=== PATIENT | female | born 1940 ===

== ENCOUNTER 2021-08-22 17:03 | Inpatient (IN) | payer OTHER ==
[2021-08-22 17:49] LABS: BASO % 0.9 % (0-2.0); EOS % 0.3 % (0-4.5); HEMOGLOBIN 8.6 GM/dL (10.7-15.3); LYMPH % 5.9 % (8-40); MCH 31.2 pg (25.7-33.7); MCHC 33.2 g/dl (32.0-36.0); MEAN CELL VOLUME 93.9 fl (80-96); MEAN PLT VOLUME 7.2 fl (7.5-11.1); MONO % 7.9 % (3.8-10.2); PLATELET COUNT 581 10^3/uL (134-434); RBC 2.77 M/mm3 (3.60-5.2); RDW 17.7 % (11.6-15.6)
[2021-08-22 18:06] LABS: ACTIVATED PTT 25.5 SECONDS (25.2-36.5); INR 1.01 (0.83-1.09); PROTHROMBIN TIME (PATIENT) 11.6 SEC (9.7-13.0)
[2021-08-22 18:17] LABS: ALBUMIN 2.6 g/dl (3.4-5.0); BLOOD UREA NITROGEN 18.7 mg/dL (7-18); CALCIUM 8.7 mg/dL (8.5-10.1)
[2021-08-22 18:19] LABS: CREATININE 1.2 mg/dL (0.55-1.3)
[2021-08-22 18:22] LABS: BILIRUBIN,TOTAL 0.5 mg/dL (0.2-1); TOT PROT 5.7 g/dl (6.4-8.2)
[2021-08-22 18:23] LABS: LACTIC ACID 2.1 mmol/L (0.4-2.0)
[2021-08-22 18:25] LABS: N-TERMINAL BNP 766.2 pg/ml (5-450)
[2021-08-23] MEDS ORDERED: CALCIUM GLUCONATE 10% - 1,000 MG/10 ML VIAL IVPUSH ONE (00:03)
[2021-08-23] MEDS ORDERED: INSULIN REGULAR HUMAN 100 UNITS/ML *VIAL SQ ONE (00:03)
[2021-08-23] MEDS ORDERED: SODIUM ZIRCONIUM CYCLOSILICATE (LOKELMA) 5 GM PACKET PO SCH (00:04)
[2021-08-23] MEDS ORDERED: DEXTROSE 50%-WATER - 25 GM/50 ML VIAL IVPUSH ONE (00:04)
[2021-08-23 03:56] VITALS: BMI 21.4
[2021-08-23 08:44] LABS: HEMATOCRIT 21.9 % (32.4-45.2); HEMOGLOBIN 7.3 GM/dL (10.7-15.3); MCH 31.2 pg (25.7-33.7); MCHC 33.1 g/dl (32.0-36.0); MEAN CELL VOLUME 94.3 fl (80-96); MEAN PLT VOLUME 7.4 fl (7.5-11.1); PLATELET COUNT 504 10^3/uL (134-434); RBC 2.33 M/mm3 (3.60-5.2); RDW 17.5 % (11.6-15.6); WHITE BLOOD COUNT 7.9 K/mm3 (4.0-10.0)
[2021-08-23 08:46] LABS: ALBUMIN 2.2 g/dl (3.4-5.0); BLOOD UREA NITROGEN 19.7 mg/dL (7-18); CALCIUM 8.5 mg/dL (8.5-10.1); MAGNESIUM 2.3 mg/dL (1.8-2.4)
[2021-08-23 08:48] LABS: CREATININE 1.1 mg/dL (0.55-1.3); PHOSPHOROUS 4.2 mg/dL (2.5-4.9)
[2021-08-23 08:51] LABS: BILIRUBIN,TOTAL 0.8 mg/dL (0.2-1)
[2021-08-23] MEDS: ENOXAPARIN NA (PORCINE) 40 MG/0.4 ML DISP.SYRIN SQ SCH (10:22)
[2021-08-23] MEDS ORDERED: LIDOCAINE HCL 1%, 10 MG/ML (20ML VIAL) ONE (16:25)
[2021-08-23 18:44] LABS: BF WBC & OTHER NUCLEATED CELLS 509 /mm3
[2021-08-23] MEDS: ALBUMIN HUMAN 25% 12.5 GM/50 ML VIAL IV SCH ×2 (18:51→20:23)
[2021-08-23 19:58] LABS: BODY FLUID MESOTHELIAL 29 %; BODY FLUID MONOCYTE 2 %
[2021-08-23 19:59] LABS: BODY FLUID MACROPHAGES 22 %
[2021-08-23] MEDS ORDERED: BENZOCAINE/MENTH/CETYLPYRD CL 1 EACH LOZENGE MM PRN (21:38)
[2021-08-23] MEDS ORDERED: ACETAMINOPHEN 325 MG TABLET (FP) PO ONE (21:38)
[2021-08-24 02:08] LABS: ARTERIAL BLD GAS O2 SATURATION 97.5 % (95-98); ARTERIAL BLOOD GAS BASE EXCESS -6.4 mmol/L (-2-2); ARTERIAL BLOOD GAS PO2 98.8 mmHg (80-100); ARTERIAL BLOOD GAS pH 7.377 (7.350-7.450)
[2021-08-24 02:10] LABS: ALLENS TEST POSITIVE
[2021-08-24] MEDS: ENOXAPARIN NA (PORCINE) 40 MG/0.4 ML DISP.SYRIN SQ SCH (10:16)
[2021-08-24 10:33] LABS: HEMATOCRIT 21.7 % (32.4-45.2); HEMOGLOBIN 7.3 GM/dL (10.7-15.3); MCH 31.3 pg (25.7-33.7); MCHC 33.4 g/dl (32.0-36.0); MEAN CELL VOLUME 93.5 fl (80-96); MEAN PLT VOLUME 7.3 fl (7.5-11.1); PLATELET COUNT 456 10^3/uL (134-434); RBC 2.32 M/mm3 (3.60-5.2); RDW 17.5 % (11.6-15.6); WHITE BLOOD COUNT 8.6 K/mm3 (4.0-10.0)
[2021-08-24] MEDS: oxyCODONE HCL 5 MG TABLET PO PRN (10:38)
[2021-08-24 10:53] LABS: ALBUMIN 2.2 g/dl (3.4-5.0); BLOOD UREA NITROGEN 27.8 mg/dL (7-18); CALCIUM 8.1 mg/dL (8.5-10.1); MAGNESIUM 2.2 mg/dL (1.8-2.4)
[2021-08-24 10:57] LABS: CREATININE 1.3 mg/dL (0.55-1.3); PHOSPHOROUS 4.6 mg/dL (2.5-4.9)
[2021-08-24 10:58] LABS: BILIRUBIN,TOTAL 0.7 mg/dL (0.2-1); TOT PROT 4.5 g/dl (6.4-8.2)
[2021-08-24 22:39] LABS: BF WBC & OTHER NUCLEATED CELLS 920 /mm3
[2021-08-25 00:14] LABS: BODY FLUID MACROPHAGES 13 %
[2021-08-25 08:07] LABS: CARCINOEMBRYONIC ANTIGEN 2.8 ng/mL (0.0-4.7)
[2021-08-25 10:11] LABS: HEMATOCRIT 21.1 % (32.4-45.2); MCHC 33.3 g/dl (32.0-36.0); MEAN CELL VOLUME 93.3 fl (80-96); MEAN PLT VOLUME 7.3 fl (7.5-11.1); PLATELET COUNT 453 10^3/uL (134-434); RBC 2.26 M/mm3 (3.60-5.2); RDW 17.4 % (11.6-15.6); WHITE BLOOD COUNT 8.6 K/mm3 (4.0-10.0)
[2021-08-25 10:32] LABS: CALCIUM 7.8 mg/dL (8.5-10.1)
[2021-08-25 10:33] LABS: ALBUMIN 1.7 g/dl (3.4-5.0); BLOOD UREA NITROGEN 24.6 mg/dL (7-18); MAGNESIUM 1.9 mg/dL (1.8-2.4)
[2021-08-25 10:36] LABS: CREATININE 0.8 mg/dL (0.55-1.3); PHOSPHOROUS 2.6 mg/dL (2.5-4.9)
[2021-08-25 10:37] LABS: BILIRUBIN,TOTAL 0.5 mg/dL (0.2-1)
[2021-08-25] MEDS: ENOXAPARIN NA (PORCINE) 40 MG/0.4 ML DISP.SYRIN SQ SCH ×2 (10:38→11:17)
[2021-08-25] MEDS ORDERED: BISACODYL 5 MG TABLET.DR (FP) PO PRN (10:39)
[2021-08-25] MEDS: oxyCODONE HCL 5 MG TABLET PO PRN (22:44)
[2021-08-26 08:07] LABS: HEMATOCRIT 24.5 % (32.4-45.2); HEMOGLOBIN 8.1 GM/dL (10.7-15.3); MCH 29.9 pg (25.7-33.7); MCHC 33.1 g/dl (32.0-36.0); MEAN CELL VOLUME 90.2 fl (80-96); MEAN PLT VOLUME 7.5 fl (7.5-11.1); PLATELET COUNT 368 10^3/uL (134-434); RBC 2.72 M/mm3 (3.60-5.2); RDW 18.7 % (11.6-15.6); WHITE BLOOD COUNT 8.6 K/mm3 (4.0-10.0)
[2021-08-26 08:32] LABS: ALBUMIN 1.5 g/dl (3.4-5.0); BLOOD UREA NITROGEN 20.3 mg/dL (7-18); MAGNESIUM 1.9 mg/dL (1.8-2.4)
[2021-08-26 08:35] LABS: CREATININE 0.6 mg/dL (0.55-1.3)
[2021-08-26 08:36] LABS: PHOSPHOROUS 2.7 mg/dL (2.5-4.9)
[2021-08-26 08:37] LABS: BILIRUBIN,TOTAL 1.2 mg/dL (0.2-1); TOT PROT 3.6 g/dl (6.4-8.2)
[2021-08-26] MEDS ORDERED: SODIUM ZIRCONIUM CYCLOSILICATE (LOKELMA) 5 GM PACKET PO ONE (09:30)
[2021-08-26] MEDS ORDERED: SODIUM CHLORIDE 1,000 ML IV SCH (09:30)
[2021-08-26] MEDS: ENOXAPARIN NA (PORCINE) 40 MG/0.4 ML DISP.SYRIN SQ SCH (10:04)
[2021-08-26] MEDS ORDERED: CEFTRIAXONE 1 GM in DEXTROSE 5%-WATER - 50 ML IVPB SCH (13:00)
[2021-08-26] MEDS ORDERED: DOXYCYCLINE INJECTION 100 MG in DEXTROSE 5%-WATER 100 ML IVPB SCH (13:00)
[2021-08-26] MEDS ORDERED: DOXYCYCLINE HYCLATE 100 MG VIAL ONE (13:30)
[2021-08-26] MEDS ORDERED: DEXTROSE 5%-WATER 100 ML IVPB ONE (13:30)
[2021-08-26] MEDS ORDERED: DEXTROSE 5%-WATER - 50 ML IVPB ONE ×2 (14:11→18:46)
[2021-08-26] MEDS ORDERED: cefTRIAXone SODIUM 1 GM VIAL ONE (14:11)
[2021-08-26 15:10] LABS: BODY FLUID ALBUMIN 1.9 g/dL (Not Estab.)
[2021-08-26] MEDS ORDERED: PIPERACILLIN/TAZOBACTAM 3.375 GM VIAL IVPB ONE (18:46)
[2021-08-26] MEDS: PIPERACILLIN/TAZOB 3.375 GM 3.375 GM in DEXTROSE 5%-WATER - 50 ML IVPB SCH (18:57)
[2021-08-26] MEDS: oxyCODONE HCL 5 MG TABLET PO PRN (21:22)
[2021-08-27] MEDS ORDERED: DEXTROSE 5%-WATER - 50 ML IVPB ONE ×3 (00:17→16:31)
[2021-08-27] MEDS ORDERED: PIPERACILLIN/TAZOBACTAM 3.375 GM VIAL IVPB ONE ×3 (00:17→16:30)
[2021-08-27] MEDS: PIPERACILLIN/TAZOB 3.375 GM 3.375 GM in DEXTROSE 5%-WATER - 50 ML IVPB SCH ×3 (00:59→17:03)
[2021-08-27 08:19] LABS: HEMATOCRIT 23.4 % (32.4-45.2); HEMOGLOBIN 7.8 GM/dL (10.7-15.3); MCH 29.9 pg (25.7-33.7); MCHC 33.3 g/dl (32.0-36.0); MEAN CELL VOLUME 89.8 fl (80-96); MEAN PLT VOLUME 7.8 fl (7.5-11.1); PLATELET COUNT 400 10^3/uL (134-434); RBC 2.61 M/mm3 (3.60-5.2); RDW 18.6 % (11.6-15.6); WHITE BLOOD COUNT 8.9 K/mm3 (4.0-10.0)
[2021-08-27 08:50] LABS: ALBUMIN 1.3 g/dl (3.4-5.0); BLOOD UREA NITROGEN 21.1 mg/dL (7-18); CALCIUM 7.5 mg/dL (8.5-10.1); MAGNESIUM 1.7 mg/dL (1.8-2.4)
[2021-08-27 08:53] LABS: CREATININE 0.8 mg/dL (0.55-1.3); PHOSPHOROUS 2.6 mg/dL (2.5-4.9)
[2021-08-27 08:54] LABS: TOT PROT 3.4 g/dl (6.4-8.2)
[2021-08-27 08:55] LABS: BILIRUBIN,TOTAL 0.5 mg/dL (0.2-1)
[2021-08-27] MEDS ORDERED: LIDOCAINE HCL IX SCH (10:15)
[2021-08-27] MEDS ORDERED: SODIUM CHLORIDE IX SCH (10:15)
[2021-08-27] MEDS ORDERED: DOXYCYCLINE IX SCH (10:15)
[2021-08-27] MEDS ORDERED: BUPIVACAINE LIPOSOME/PF (EXPAREL) 266 MG/20 ML VIAL ONE (10:19)
[2021-08-27] MEDS ORDERED: BUPIVACAINE HCL/PF 0.25% (2.5MG/ML) 10 ML VIAL ONE (10:19)
[2021-08-27] MEDS ORDERED: MAGNESIUM 1GM/D5W 100ML - 100 ML IVPB IVPB ONE (10:30)
[2021-08-27] MEDS: oxyCODONE HCL 5 MG TABLET PO PRN (19:39)
[2021-08-28] MEDS ORDERED: PIPERACILLIN/TAZOBACTAM 3.375 GM VIAL IVPB ONE ×3 (01:23→16:57)
[2021-08-28] MEDS ORDERED: DEXTROSE 5%-WATER - 50 ML IVPB ONE ×3 (01:24→16:58)
[2021-08-28] MEDS: PIPERACILLIN/TAZOB 3.375 GM 3.375 GM in DEXTROSE 5%-WATER - 50 ML IVPB SCH ×3 (01:54→17:07)
[2021-08-28] MEDS ORDERED: SODIUM CHLORIDE 1,000 ML IV SCH (07:30)
[2021-08-28 08:58] LABS: HEMATOCRIT 21.6 % (32.4-45.2); HEMOGLOBIN 7.3 GM/dL (10.7-15.3); MCH 30.8 pg (25.7-33.7); MCHC 34.1 g/dl (32.0-36.0); MEAN CELL VOLUME 90.3 fl (80-96); MEAN PLT VOLUME 7.5 fl (7.5-11.1); PLATELET COUNT 405 10^3/uL (134-434); RBC 2.39 M/mm3 (3.60-5.2); RDW 17.8 % (11.6-15.6); WHITE BLOOD COUNT 7.5 K/mm3 (4.0-10.0)
[2021-08-28 09:20] LABS: ALBUMIN 1.1 g/dl (3.4-5.0); CALCIUM 7.8 mg/dL (8.5-10.1)
[2021-08-28 09:23] LABS: CREATININE 0.9 mg/dL (0.55-1.3); PHOSPHOROUS 3.3 mg/dL (2.5-4.9)
[2021-08-28 09:25] LABS: BILIRUBIN,TOTAL 0.5 mg/dL (0.2-1); TOT PROT 3.3 g/dl (6.4-8.2)
[2021-08-28] MEDS: ENOXAPARIN NA (PORCINE) 40 MG/0.4 ML DISP.SYRIN SQ SCH (09:26)
[2021-08-28 14:27] LABS: BODY FLUID ALBUMIN 1.3 g/dL (Not Estab.)
[2021-08-28] MEDS: oxyCODONE HCL 5 MG TABLET PO PRN (20:46)
[2021-08-28] MEDS ORDERED: DOCUSATE SODIUM 100 MG CAPSULE (FP) PO ONE (21:16)
[2021-08-29] MEDS ORDERED: DEXTROSE 5%-WATER - 50 ML IVPB ONE ×3 (00:41→17:26)
[2021-08-29] MEDS ORDERED: PIPERACILLIN/TAZOBACTAM 3.375 GM VIAL IVPB ONE ×3 (00:41→17:26)
[2021-08-29] MEDS: PIPERACILLIN/TAZOB 3.375 GM 3.375 GM in DEXTROSE 5%-WATER - 50 ML IVPB SCH ×3 (01:10→17:40)
[2021-08-29 09:17] LABS: MCH 29.3 pg (25.7-33.7); MCHC 33.4 g/dl (32.0-36.0); MEAN CELL VOLUME 87.7 fl (80-96); MEAN PLT VOLUME 7.3 fl (7.5-11.1); PLATELET COUNT 496 10^3/uL (134-434); RBC 3.42 M/mm3 (3.60-5.2); RDW 18.9 % (11.6-15.6); WHITE BLOOD COUNT 8.2 K/mm3 (4.0-10.0)
[2021-08-29 09:44] LABS: CALCIUM 8.4 mg/dL (8.5-10.1)
[2021-08-29 09:45] LABS: BLOOD UREA NITROGEN 26.6 mg/dL (7-18)
[2021-08-29 09:48] LABS: CREATININE 0.7 mg/dL (0.55-1.3)
[2021-08-29] MEDS: POLYETHYLENE GLYCOL (HEALTHYLAX) 3350 17 GM PACKET PO SCH (10:28)
[2021-08-29] MEDS: ENOXAPARIN NA (PORCINE) 40 MG/0.4 ML DISP.SYRIN SQ SCH (11:28)
[2021-08-29] MEDS: GABAPENTIN 100 MG CAPSULE PO SCH ×2 (14:08→21:08)
[2021-08-29] MEDS ORDERED: DOCUSATE SODIUM 100 MG CAPSULE (FP) PO ONE (21:01)
[2021-08-30] MEDS: oxyCODONE HCL 5 MG TABLET PO PRN ×2 (00:57→23:09)
[2021-08-30] MEDS ORDERED: PIPERACILLIN/TAZOBACTAM 3.375 GM VIAL IVPB ONE ×4 (01:03→17:38)
[2021-08-30] MEDS ORDERED: DEXTROSE 5%-WATER - 50 ML IVPB ONE ×3 (01:03→17:38)
[2021-08-30] MEDS: PIPERACILLIN/TAZOB 3.375 GM 3.375 GM in DEXTROSE 5%-WATER - 50 ML IVPB SCH ×3 (01:27→17:42)
[2021-08-30] MEDS: GABAPENTIN 100 MG CAPSULE PO SCH ×3 (05:18→21:16)
[2021-08-30] MEDS: POLYETHYLENE GLYCOL (HEALTHYLAX) 3350 17 GM PACKET PO SCH (09:10)
[2021-08-30 09:59] LABS: HEMOGLOBIN 9.7 GM/dL (10.7-15.3); MCH 28.7 pg (25.7-33.7); MCHC 32.2 g/dl (32.0-36.0); MEAN CELL VOLUME 89.1 fl (80-96); MEAN PLT VOLUME 7.8 fl (7.5-11.1); PLATELET COUNT 591 10^3/uL (134-434); RBC 3.37 M/mm3 (3.60-5.2); RDW 18.9 % (11.6-15.6)
[2021-08-30 10:07] LABS: BLOOD UREA NITROGEN 25.4 mg/dL (7-18)
[2021-08-30 10:10] LABS: CREATININE 0.7 mg/dL (0.55-1.3)
[2021-08-30] MEDS ORDERED: HEPARIN NA (PORCINE) 5,000 UNITS/ML 1ML VIAL SQ SCH (14:00)
[2021-08-30] MEDS: DEXAMETHASONE SOD PHOSPHATE 4 MG/1 ML VIAL IVPB SCH (19:48)
[2021-08-31] MEDS ORDERED: DEXTROSE 5%-WATER - 50 ML IVPB ONE ×3 (00:52→17:44)
[2021-08-31] MEDS ORDERED: PIPERACILLIN/TAZOBACTAM 3.375 GM VIAL IVPB ONE ×3 (00:52→17:44)
[2021-08-31] MEDS: PIPERACILLIN/TAZOB 3.375 GM 3.375 GM in DEXTROSE 5%-WATER - 50 ML IVPB SCH ×3 (01:07→17:56)
[2021-08-31] MEDS: DEXAMETHASONE SOD PHOSPHATE 4 MG/1 ML VIAL IVPB SCH ×3 (01:49→18:54)
[2021-08-31] MEDS: GABAPENTIN 100 MG CAPSULE PO SCH ×3 (05:28→22:28)
[2021-08-31 09:41] LABS: HEMATOCRIT 28.9 % (32.4-45.2); HEMOGLOBIN 9.4 GM/dL (10.7-15.3); MCH 29.3 pg (25.7-33.7); MCHC 32.7 g/dl (32.0-36.0); MEAN CELL VOLUME 89.7 fl (80-96); PLATELET COUNT 667 10^3/uL (134-434); RBC 3.22 M/mm3 (3.60-5.2); RDW 18.8 % (11.6-15.6); WHITE BLOOD COUNT 7.1 K/mm3 (4.0-10.0)
[2021-08-31 09:46] LABS: INR 1.02 (0.83-1.09); PROTHROMBIN TIME (PATIENT) 11.7 SEC (9.7-13.0)
[2021-08-31 10:01] LABS: CALCIUM 7.9 mg/dL (8.5-10.1)
[2021-08-31 10:02] LABS: BLOOD UREA NITROGEN 24.5 mg/dL (7-18); MAGNESIUM 2.3 mg/dL (1.8-2.4)
[2021-08-31 10:05] LABS: CREATININE 0.9 mg/dL (0.55-1.3); PHOSPHOROUS 4.2 mg/dL (2.5-4.9)
[2021-08-31] MEDS: PANTOPRAZOLE SODIUM 40 MG VIAL IVPB SCH (10:43)
[2021-08-31] MEDS ORDERED: SODIUM ZIRCONIUM CYCLOSILICATE (LOKELMA) 5 GM PACKET PO ONE (11:22)
[2021-08-31] MEDS ORDERED: SODIUM CHLORIDE 1,000 ML IV SCH (12:45)
[2021-08-31] MEDS ORDERED: SODIUM CHLORIDE 500 ML IV ONE (13:40)
[2021-08-31] MEDS: POLYETHYLENE GLYCOL (HEALTHYLAX) 3350 17 GM PACKET PO SCH (15:44)
[2021-08-31] MEDS: ENOXAPARIN NA (PORCINE) 40 MG/0.4 ML DISP.SYRIN SQ SCH (17:56)
[2021-08-31] MEDS: oxyCODONE HCL 5 MG TABLET PO PRN (22:33)
[2021-09-01] MEDS ORDERED: PIPERACILLIN/TAZOBACTAM 3.375 GM VIAL IVPB ONE ×3 (01:57→17:02)
[2021-09-01] MEDS ORDERED: DEXTROSE 5%-WATER - 50 ML IVPB ONE ×3 (01:57→17:02)
[2021-09-01] MEDS: DEXAMETHASONE SOD PHOSPHATE 4 MG/1 ML VIAL IVPB SCH ×3 (02:11→17:07)
[2021-09-01] MEDS: PIPERACILLIN/TAZOB 3.375 GM 3.375 GM in DEXTROSE 5%-WATER - 50 ML IVPB SCH ×3 (02:14→17:07)
[2021-09-01] MEDS: GABAPENTIN 100 MG CAPSULE PO SCH ×3 (05:12→21:05)
[2021-09-01] MEDS: ENOXAPARIN NA (PORCINE) 40 MG/0.4 ML DISP.SYRIN SQ SCH (10:04)
[2021-09-01] MEDS: POLYETHYLENE GLYCOL (HEALTHYLAX) 3350 17 GM PACKET PO SCH ×2 (10:05→10:34)
[2021-09-01] MEDS: PANTOPRAZOLE SODIUM 40 MG VIAL IVPB SCH (10:05)
[2021-09-01 11:03] LABS: HEMATOCRIT 27.9 % (32.4-45.2); HEMOGLOBIN 9.2 GM/dL (10.7-15.3); MCH 29.1 pg (25.7-33.7); MEAN CELL VOLUME 88.2 fl (80-96); MEAN PLT VOLUME 7.5 fl (7.5-11.1); PLATELET COUNT 723 10^3/uL (134-434); RBC 3.17 M/mm3 (3.60-5.2); WHITE BLOOD COUNT 10.1 K/mm3 (4.0-10.0)
[2021-09-01 11:46] LABS: CALCIUM 8.2 mg/dL (8.5-10.1)
[2021-09-01 11:47] LABS: BLOOD UREA NITROGEN 31.8 mg/dL (7-18)
[2021-09-01 11:50] LABS: CREATININE 0.8 mg/dL (0.55-1.3)
[2021-09-02] MEDS ORDERED: PIPERACILLIN/TAZOBACTAM 3.375 GM VIAL IVPB ONE ×2 (00:42→09:58)
[2021-09-02] MEDS ORDERED: DEXTROSE 5%-WATER - 50 ML IVPB ONE ×2 (00:42→09:58)
[2021-09-02] MEDS: DEXAMETHASONE SOD PHOSPHATE 4 MG/1 ML VIAL IVPB SCH ×3 (01:24→17:36)
[2021-09-02] MEDS: PIPERACILLIN/TAZOB 3.375 GM 3.375 GM in DEXTROSE 5%-WATER - 50 ML IVPB SCH ×2 (02:18→10:08)
[2021-09-02] MEDS: GABAPENTIN 100 MG CAPSULE PO SCH ×3 (05:12→21:05)
[2021-09-02] MEDS ORDERED: SENNOSIDES 8.6MG TABLET (FP) PO PRN (08:18)
[2021-09-02 08:35] LABS: HEMATOCRIT 25.3 % (32.4-45.2); HEMOGLOBIN 8.3 GM/dL (10.7-15.3); MCH 29.2 pg (25.7-33.7); MCHC 32.9 g/dl (32.0-36.0); MEAN CELL VOLUME 88.6 fl (80-96); MEAN PLT VOLUME 7.8 fl (7.5-11.1); PLATELET COUNT 690 10^3/uL (134-434); RBC 2.86 M/mm3 (3.60-5.2); WHITE BLOOD COUNT 10.2 K/mm3 (4.0-10.0)
[2021-09-02 09:02] LABS: CALCIUM 7.9 mg/dL (8.5-10.1)
[2021-09-02] MEDS: PANTOPRAZOLE 40 MG TABLET PO SCH (10:07)
[2021-09-02] MEDS: ENOXAPARIN NA (PORCINE) 40 MG/0.4 ML DISP.SYRIN SQ SCH (10:08)
[2021-09-02] MEDS: SODIUM ZIRCONIUM CYCLOSILICATE (LOKELMA) 5 GM PACKET PO SCH (17:36)
[2021-09-03] MEDS: DEXAMETHASONE SOD PHOSPHATE 4 MG/1 ML VIAL IVPB SCH ×3 (01:40→21:37)
[2021-09-03] MEDS: GABAPENTIN 100 MG CAPSULE PO SCH ×3 (05:42→21:38)
[2021-09-03 08:34] LABS: HEMATOCRIT 24.7 % (32.4-45.2); HEMOGLOBIN 8.1 GM/dL (10.7-15.3); MCH 28.7 pg (25.7-33.7); MCHC 32.6 g/dl (32.0-36.0); MEAN CELL VOLUME 87.9 fl (80-96); MEAN PLT VOLUME 8.3 fl (7.5-11.1); PLATELET COUNT 761 10^3/uL (134-434); RBC 2.82 M/mm3 (3.60-5.2); RDW 17.7 % (11.6-15.6); WHITE BLOOD COUNT 13.1 K/mm3 (4.0-10.0)
[2021-09-03] MEDS ORDERED: SODIUM CHLORIDE 1,000 ML IV SCH (09:00)
[2021-09-03 09:01] LABS: BLOOD UREA NITROGEN 42.2 mg/dL (7-18); CALCIUM 7.9 mg/dL (8.5-10.1)
[2021-09-03] MEDS: ENOXAPARIN NA (PORCINE) 40 MG/0.4 ML DISP.SYRIN SQ SCH (09:17)
[2021-09-03] MEDS: SODIUM ZIRCONIUM CYCLOSILICATE (LOKELMA) 5 GM PACKET PO SCH (09:18)
[2021-09-03] MEDS: PANTOPRAZOLE 40 MG TABLET PO SCH (09:18)
[2021-09-03 17:39] LABS: CALCIUM 8.2 mg/dL (8.5-10.1)
[2021-09-03 17:40] LABS: BLOOD UREA NITROGEN 46.6 mg/dL (7-18)
[2021-09-03 17:43] LABS: CREATININE 0.9 mg/dL (0.55-1.3)
[2021-09-03 21:55] LABS: URINE APPEARANCE CLEAR; URINE BILIRUBIN NEGATIVE (NEGATIVE); URINE COLOR YELLOW; URINE GLUCOSE (UA) NEGATIVE (NEGATIVE); URINE KETONE NEGATIVE (NEGATIVE); URINE LEUK ESTERASE NEGATIVE (NEGATIVE); URINE NITRITE NEGATIVE (NEGATIVE); URINE PROTEIN NEGATIVE (NEGATIVE); URINE UROBILINOGEN 0.2 mg/dL (0.2-1.0)
[2021-09-04] MEDS: GABAPENTIN 100 MG CAPSULE PO SCH ×3 (05:51→21:45)
[2021-09-04 09:28] LABS: HEMATOCRIT 26.1 % (32.4-45.2); HEMOGLOBIN 8.6 GM/dL (10.7-15.3); MCH 29.1 pg (25.7-33.7); MCHC 33.1 g/dl (32.0-36.0); MEAN CELL VOLUME 87.8 fl (80-96); PLATELET COUNT 822 10^3/uL (134-434); RBC 2.97 M/mm3 (3.60-5.2); RDW 17.7 % (11.6-15.6); WHITE BLOOD COUNT 13.7 K/mm3 (4.0-10.0)
[2021-09-04 09:50] LABS: CALCIUM 8.5 mg/dL (8.5-10.1)
[2021-09-04 09:51] LABS: BLOOD UREA NITROGEN 48.7 mg/dL (7-18)
[2021-09-04 09:54] LABS: CREATININE 0.9 mg/dL (0.55-1.3)
[2021-09-04] MEDS: AMINO ACIDS/PROTEIN HYDROLYS 30 ML LIQUID.PKT PO SCH (10:07)
[2021-09-04] MEDS: SODIUM ZIRCONIUM CYCLOSILICATE (LOKELMA) 5 GM PACKET PO SCH (10:07)
[2021-09-04] MEDS: ENOXAPARIN NA (PORCINE) 40 MG/0.4 ML DISP.SYRIN SQ SCH (10:07)
[2021-09-04] MEDS: PANTOPRAZOLE 40 MG TABLET PO SCH (10:08)
[2021-09-04] MEDS: MULTIVITAMINS (DAILY MVI) TABLET (FP) PO SCH (10:08)
[2021-09-04] MEDS: DEXAMETHASONE SOD PHOSPHATE 4 MG/1 ML VIAL IVPB SCH ×2 (10:08→21:45)
[2021-09-05] MEDS: GABAPENTIN 100 MG CAPSULE PO SCH ×3 (06:32→21:44)
[2021-09-05 09:22] LABS: HEMATOCRIT 24.6 % (32.4-45.2); HEMOGLOBIN 8.1 GM/dL (10.7-15.3); MCH 29.2 pg (25.7-33.7); MEAN CELL VOLUME 88.5 fl (80-96); MEAN PLT VOLUME 8.4 fl (7.5-11.1); PLATELET COUNT 893 10^3/uL (134-434); RBC 2.78 M/mm3 (3.60-5.2); RDW 17.7 % (11.6-15.6); WHITE BLOOD COUNT 15.3 K/mm3 (4.0-10.0)
[2021-09-05] MEDS: AMINO ACIDS/PROTEIN HYDROLYS 30 ML LIQUID.PKT PO SCH (09:53)
[2021-09-05] MEDS: PANTOPRAZOLE 40 MG TABLET PO SCH (09:53)
[2021-09-05] MEDS: MULTIVITAMINS (DAILY MVI) TABLET (FP) PO SCH (09:53)
[2021-09-05] MEDS: DEXAMETHASONE SOD PHOSPHATE 4 MG/1 ML VIAL IVPB SCH (09:54)
[2021-09-05] MEDS: ENOXAPARIN NA (PORCINE) 40 MG/0.4 ML DISP.SYRIN SQ SCH (09:54)
[2021-09-05 10:17] LABS: CALCIUM 8.2 mg/dL (8.5-10.1)
[2021-09-05 10:18] LABS: BLOOD UREA NITROGEN 54.9 mg/dL (7-18)
[2021-09-05] MEDS: SODIUM ZIRCONIUM CYCLOSILICATE (LOKELMA) 5 GM PACKET PO SCH (15:17)
[2021-09-05] MEDS ORDERED: LOPERAMIDE HCL 2 MG CAPSULE PO ONE (18:32)
[2021-09-05] MEDS: LYTES/YERBA SANTA 240 ML BOTTLE MM SCH (20:19)
[2021-09-05] MEDS: LACTOBACILLUS ACIDOPHILUS 1 TABLET PO SCH (21:44)
[2021-09-05] MEDS ORDERED: DEXAMETHASONE SOD PHOSPHATE 4 MG/1 ML VIAL IVPB SCH (22:00)
[2021-09-06] MEDS: GABAPENTIN 100 MG CAPSULE PO SCH ×3 (05:55→21:29)
[2021-09-06] MEDS: ENOXAPARIN NA (PORCINE) 40 MG/0.4 ML DISP.SYRIN SQ SCH (09:07)
[2021-09-06] MEDS: MULTIVITAMINS (DAILY MVI) TABLET (FP) PO SCH (09:07)
[2021-09-06] MEDS: DEXAMETHASONE SOD PHOSPHATE 4 MG/1 ML VIAL IVPB SCH (09:07)
[2021-09-06] MEDS: PANTOPRAZOLE 40 MG TABLET PO SCH (09:07)
[2021-09-06] MEDS: AMINO ACIDS/PROTEIN HYDROLYS 30 ML LIQUID.PKT PO SCH (09:07)
[2021-09-06 10:03] LABS: HEMATOCRIT 24.6 % (32.4-45.2); HEMOGLOBIN 7.9 GM/dL (10.7-15.3); MCH 29.1 pg (25.7-33.7); MCHC 32.3 g/dl (32.0-36.0); MEAN PLT VOLUME 8.5 fl (7.5-11.1); PLATELET COUNT 901 10^3/uL (134-434); RBC 2.73 M/mm3 (3.60-5.2); RDW 18.1 % (11.6-15.6); WHITE BLOOD COUNT 18.6 K/mm3 (4.0-10.0)
[2021-09-06 10:22] LABS: CALCIUM 8.5 mg/dL (8.5-10.1)
[2021-09-06 10:23] LABS: MAGNESIUM 2.6 mg/dL (1.8-2.4)
[2021-09-06 10:26] LABS: PHOSPHOROUS 4.4 mg/dL (2.5-4.9)
[2021-09-06] MEDS: SODIUM ZIRCONIUM CYCLOSILICATE (LOKELMA) 5 GM PACKET PO SCH (11:58)
[2021-09-06] MEDS: LYTES/YERBA SANTA 240 ML BOTTLE MM SCH (13:27)
[2021-09-06] MEDS: LACTOBACILLUS ACIDOPHILUS 1 TABLET PO SCH (21:28)
[2021-09-07] MEDS: GABAPENTIN 100 MG CAPSULE PO SCH ×3 (05:01→22:11)
[2021-09-07] MEDS: MULTIVITAMINS (DAILY MVI) TABLET (FP) PO SCH (09:27)
[2021-09-07] MEDS: ENOXAPARIN NA (PORCINE) 40 MG/0.4 ML DISP.SYRIN SQ SCH (09:27)
[2021-09-07] MEDS: DEXAMETHASONE SOD PHOSPHATE 4 MG/1 ML VIAL IVPB SCH (09:27)
[2021-09-07] MEDS: AMINO ACIDS/PROTEIN HYDROLYS 30 ML LIQUID.PKT PO SCH (09:27)
[2021-09-07] MEDS: SODIUM ZIRCONIUM CYCLOSILICATE (LOKELMA) 5 GM PACKET PO SCH (09:27)
[2021-09-07] MEDS: LYTES/YERBA SANTA 240 ML BOTTLE MM SCH (09:27)
[2021-09-07] MEDS: PANTOPRAZOLE 40 MG TABLET PO SCH (09:27)
[2021-09-07 09:44] LABS: HEMATOCRIT 23.5 % (32.4-45.2); HEMOGLOBIN 7.6 GM/dL (10.7-15.3); MCHC 32.2 g/dl (32.0-36.0); MEAN CELL VOLUME 90.1 fl (80-96); MEAN PLT VOLUME 8.5 fl (7.5-11.1); RBC 2.61 M/mm3 (3.60-5.2); RDW 18.9 % (11.6-15.6); WHITE BLOOD COUNT 19.1 K/mm3 (4.0-10.0)
[2021-09-07 09:50] LABS: PLATELET COUNT 933 10^3/uL (134-434)
[2021-09-07 10:04] LABS: CALCIUM 8.3 mg/dL (8.5-10.1)
[2021-09-07 10:05] LABS: MAGNESIUM 2.6 mg/dL (1.8-2.4)
[2021-09-07 10:08] LABS: CREATININE 0.9 mg/dL (0.55-1.3)
[2021-09-07] MEDS: LACTOBACILLUS ACIDOPHILUS 1 TABLET PO SCH (22:11)
[2021-09-07] MEDS: LOPERAMIDE HCL 2 MG CAPSULE PO PRN (22:11)
[2021-09-08] MEDS: GABAPENTIN 100 MG CAPSULE PO SCH ×3 (05:56→22:13)
[2021-09-08 08:36] LABS: HEMATOCRIT 20.8 % (32.4-45.2); MCHC 33.7 g/dl (32.0-36.0); MEAN CELL VOLUME 89.2 fl (80-96); MEAN PLT VOLUME 8.1 fl (7.5-11.1); PLATELET COUNT 786 10^3/uL (134-434); RBC 2.33 M/mm3 (3.60-5.2); RDW 19.2 % (11.6-15.6); WHITE BLOOD COUNT 17.1 K/mm3 (4.0-10.0)
[2021-09-08] MEDS ORDERED: MELATONIN 5 MG TABLETS PO PRN (08:44)
[2021-09-08 08:57] LABS: ALBUMIN 1.2 g/dl (3.4-5.0); BLOOD UREA NITROGEN 58.1 mg/dL (7-18); MAGNESIUM 2.5 mg/dL (1.8-2.4)
[2021-09-08] MEDS: AMINO ACIDS/PROTEIN HYDROLYS 30 ML LIQUID.PKT PO SCH (08:59)
[2021-09-08 09:00] LABS: CREATININE 0.8 mg/dL (0.55-1.3); PHOSPHOROUS 3.5 mg/dL (2.5-4.9)
[2021-09-08 09:02] LABS: BILIRUBIN,TOTAL 0.3 mg/dL (0.2-1); TOT PROT 3.2 g/dl (6.4-8.2)
[2021-09-08] MEDS: DEXAMETHASONE SOD PHOSPHATE 4 MG/1 ML VIAL IVPB SCH (09:09)
[2021-09-08] MEDS ORDERED: DEXTROSE 50%-WATER - 25 GM/50 ML VIAL IVPUSH ONE (09:12)
[2021-09-08] MEDS ORDERED: INSULIN REGULAR HUMAN 100 UNITS/ML *VIAL IVPUSH ONE (09:12)
[2021-09-08] MEDS: MULTIVITAMINS (DAILY MVI) TABLET (FP) PO SCH (09:14)
[2021-09-08] MEDS: PANTOPRAZOLE 40 MG TABLET PO SCH (09:14)
[2021-09-08] MEDS: LYTES/YERBA SANTA 240 ML BOTTLE MM SCH (09:24)
[2021-09-08 09:41] LABS: ANISOCYTOSIS 1+; MACROCYTOSIS 1+
[2021-09-08] MEDS ORDERED: DEXTROSE 50%-WATER 25 GM/50 ML DISP.SYRIN ONE (09:50)
[2021-09-08] MEDS: SODIUM ZIRCONIUM CYCLOSILICATE (LOKELMA) 5 GM PACKET PO SCH (10:03)
[2021-09-08] MEDS: LACTOBACILLUS ACIDOPHILUS 1 TABLET PO SCH (22:13)
[2021-09-08] MEDS: ZINC OXIDE 20% TOPICAL OINTMENT 30 GM TUBE TP SCH (22:13)
[2021-09-09] MEDS: GABAPENTIN 100 MG CAPSULE PO SCH ×3 (05:57→21:27)
[2021-09-09] MEDS: ZINC OXIDE 20% TOPICAL OINTMENT 30 GM TUBE TP SCH ×2 (11:02→21:27)
[2021-09-09] MEDS: LYTES/YERBA SANTA 240 ML BOTTLE MM SCH (11:02)
[2021-09-09] MEDS: SODIUM ZIRCONIUM CYCLOSILICATE (LOKELMA) 5 GM PACKET PO SCH (11:04)
[2021-09-09] MEDS: MULTIVITAMINS (DAILY MVI) TABLET (FP) PO SCH (11:04)
[2021-09-09] MEDS: DEXAMETHASONE SOD PHOSPHATE 4 MG/1 ML VIAL IVPB SCH (11:04)
[2021-09-09] MEDS: AMINO ACIDS/PROTEIN HYDROLYS 30 ML LIQUID.PKT PO SCH (11:04)
[2021-09-09] MEDS: PANTOPRAZOLE 40 MG TABLET PO SCH (11:04)
[2021-09-09] MEDS: LOPERAMIDE HCL 2 MG CAPSULE PO PRN (18:17)
[2021-09-09] MEDS: LACTOBACILLUS ACIDOPHILUS 1 TABLET PO SCH (21:27)
[2021-09-10] MEDS: GABAPENTIN 100 MG CAPSULE PO SCH ×3 (06:01→21:14)
[2021-09-10 09:10] LABS: HEMATOCRIT 22.4 % (32.4-45.2); HEMOGLOBIN 7.3 GM/dL (10.7-15.3); MCHC 32.6 g/dl (32.0-36.0); MEAN CELL VOLUME 92.1 fl (80-96); PLATELET COUNT 816 10^3/uL (134-434); RBC 2.43 M/mm3 (3.60-5.2); RDW 20.2 % (11.6-15.6); WHITE BLOOD COUNT 16.1 K/mm3 (4.0-10.0)
[2021-09-10 09:11] LABS: MAGNESIUM 2.4 mg/dL (1.8-2.4)
[2021-09-10 09:15] LABS: CREATININE 0.7 mg/dL (0.55-1.3)
[2021-09-10] MEDS: PANTOPRAZOLE 40 MG TABLET PO SCH (10:46)
[2021-09-10] MEDS: MULTIVITAMINS (DAILY MVI) TABLET (FP) PO SCH (10:46)
[2021-09-10] MEDS: AMINO ACIDS/PROTEIN HYDROLYS 30 ML LIQUID.PKT PO SCH (10:47)
[2021-09-10] MEDS: POLYETHYLENE GLYCOL (HEALTHYLAX) 3350 17 GM PACKET PO SCH ×2 (10:47→11:08)
[2021-09-10] MEDS: SODIUM ZIRCONIUM CYCLOSILICATE (LOKELMA) 5 GM PACKET PO SCH (10:47)
[2021-09-10] MEDS: DEXAMETHASONE SOD PHOSPHATE 4 MG/1 ML VIAL IVPB SCH (10:47)
[2021-09-10] MEDS: LYTES/YERBA SANTA 240 ML BOTTLE MM SCH (10:48)
[2021-09-10] MEDS: ZINC OXIDE 20% TOPICAL OINTMENT 30 GM TUBE TP SCH ×2 (10:49→21:36)
[2021-09-10] MEDS: LACTOBACILLUS ACIDOPHILUS 1 TABLET PO SCH (21:14)
[2021-09-10] MEDS: MELATONIN 5 MG TABLETS PO PRN (21:14)
[2021-09-11] MEDS: GABAPENTIN 100 MG CAPSULE PO SCH ×3 (05:56→21:23)
[2021-09-11 08:25] LABS: HEMATOCRIT 22.2 % (32.4-45.2); HEMOGLOBIN 7.3 GM/dL (10.7-15.3); MCH 30.2 pg (25.7-33.7); MCHC 32.6 g/dl (32.0-36.0); MEAN CELL VOLUME 92.6 fl (80-96); MEAN PLT VOLUME 7.7 fl (7.5-11.1); PLATELET COUNT 755 10^3/uL (134-434); RDW 20.5 % (11.6-15.6); WHITE BLOOD COUNT 15.4 K/mm3 (4.0-10.0)
[2021-09-11 08:35] LABS: INR 0.91 (0.83-1.09); PROTHROMBIN TIME (PATIENT) 10.4 SEC (9.7-13.0)
[2021-09-11 08:47] LABS: ALBUMIN 1.2 g/dl (3.4-5.0); CALCIUM 8.4 mg/dL (8.5-10.1); CREATININE 0.8 mg/dL (0.55-1.3)
[2021-09-11 08:49] LABS: BILIRUBIN,TOTAL 0.1 mg/dL (0.2-1); MAGNESIUM 2.5 mg/dL (1.8-2.4); TOT PROT 3.2 g/dl (6.4-8.2)
[2021-09-11] MEDS: SODIUM ZIRCONIUM CYCLOSILICATE (LOKELMA) 5 GM PACKET PO SCH (09:35)
[2021-09-11] MEDS: AMINO ACIDS/PROTEIN HYDROLYS 30 ML LIQUID.PKT PO SCH (09:35)
[2021-09-11] MEDS: DEXAMETHASONE SOD PHOSPHATE 4 MG/1 ML VIAL IVPB SCH (09:35)
[2021-09-11] MEDS: MULTIVITAMINS (DAILY MVI) TABLET (FP) PO SCH (09:36)
[2021-09-11] MEDS: PANTOPRAZOLE 40 MG TABLET PO SCH (09:36)
[2021-09-11] MEDS ORDERED: DEXTROSE 50%-WATER - 25 GM/50 ML VIAL IVPUSH ONE (10:16)
[2021-09-11] MEDS ORDERED: INSULIN REGULAR HUMAN 100 UNITS/ML *VIAL IVPUSH ONE (10:30)
[2021-09-11] MEDS ORDERED: SODIUM BICARBONATE 4.2% 5 MEQ/10 ML DISP.SYRIN IVPUSH ONE ×2 (11:19→12:15)
[2021-09-11] MEDS: LYTES/YERBA SANTA 240 ML BOTTLE MM SCH (11:47)
[2021-09-11] MEDS ORDERED: DEXTROSE 50%-WATER 25 GM/50 ML DISP.SYRIN ONE (12:26)
[2021-09-11] MEDS ORDERED: SODIUM BICARBONATE 8.4% 50 MEQ/50 ML DISP.SYRIN IVPUSH ONE (13:30)
[2021-09-11] MEDS: ZINC OXIDE 20% TOPICAL OINTMENT 30 GM TUBE TP SCH ×2 (15:19→21:23)
[2021-09-11 19:00] LABS: CALCIUM 7.8 mg/dL (8.5-10.1)
[2021-09-11 19:02] LABS: BLOOD UREA NITROGEN 45.7 mg/dL (7-18)
[2021-09-11 19:04] LABS: CREATININE 0.8 mg/dL (0.55-1.3)
[2021-09-11] MEDS: MELATONIN 5 MG TABLETS PO PRN (21:23)
[2021-09-11] MEDS: LACTOBACILLUS ACIDOPHILUS 1 TABLET PO SCH (21:23)
[2021-09-11] MEDS ORDERED: diphenhydrAMINE HCL 25 MG CAPSULE (FP) PO SCH (22:00)
[2021-09-12] MEDS: GABAPENTIN 100 MG CAPSULE PO SCH ×3 (05:33→21:40)
[2021-09-12] MEDS: DEXAMETHASONE SOD PHOSPHATE 4 MG/1 ML VIAL IVPB SCH (09:24)
[2021-09-12] MEDS: SODIUM ZIRCONIUM CYCLOSILICATE (LOKELMA) 5 GM PACKET PO SCH (09:24)
[2021-09-12] MEDS: AMINO ACIDS/PROTEIN HYDROLYS 30 ML LIQUID.PKT PO SCH (09:24)
[2021-09-12] MEDS: PANTOPRAZOLE 40 MG TABLET PO SCH (09:25)
[2021-09-12] MEDS: MULTIVITAMINS (DAILY MVI) TABLET (FP) PO SCH (09:25)
[2021-09-12] MEDS: ZINC OXIDE 20% TOPICAL OINTMENT 30 GM TUBE TP SCH ×2 (09:25→21:41)
[2021-09-12] MEDS: LYTES/YERBA SANTA 240 ML BOTTLE MM SCH (09:26)
[2021-09-12 09:56] LABS: HEMATOCRIT 23.4 % (32.4-45.2); HEMOGLOBIN 7.6 GM/dL (10.7-15.3); MCH 30.1 pg (25.7-33.7); MCHC 32.4 g/dl (32.0-36.0); MEAN CELL VOLUME 92.9 fl (80-96); MEAN PLT VOLUME 7.7 fl (7.5-11.1); PLATELET COUNT 787 10^3/uL (134-434); RBC 2.52 M/mm3 (3.60-5.2); RDW 21.6 % (11.6-15.6); WHITE BLOOD COUNT 17.2 K/mm3 (4.0-10.0)
[2021-09-12 10:10] LABS: CALCIUM 8.3 mg/dL (8.5-10.1)
[2021-09-12 10:11] LABS: BLOOD UREA NITROGEN 47.7 mg/dL (7-18); MAGNESIUM 2.3 mg/dL (1.8-2.4)
[2021-09-12 10:14] LABS: CREATININE 0.9 mg/dL (0.55-1.3)
[2021-09-12] MEDS: ZOLPIDEM TARTRATE 5 MG TABLET PO PRN (21:40)
[2021-09-12] MEDS: LACTOBACILLUS ACIDOPHILUS 1 TABLET PO SCH (21:40)
[2021-09-13] MEDS: GABAPENTIN 100 MG CAPSULE PO SCH ×3 (06:27→21:33)
[2021-09-13] MEDS: AMINO ACIDS/PROTEIN HYDROLYS 30 ML LIQUID.PKT PO SCH (08:32)
[2021-09-13 09:34] LABS: HEMATOCRIT 22.7 % (32.4-45.2); HEMOGLOBIN 7.5 GM/dL (10.7-15.3); MCH 30.7 pg (25.7-33.7); MCHC 33.1 g/dl (32.0-36.0); MEAN CELL VOLUME 92.7 fl (80-96); MEAN PLT VOLUME 7.6 fl (7.5-11.1); PLATELET COUNT 726 10^3/uL (134-434); RBC 2.45 M/mm3 (3.60-5.2); RDW 21.6 % (11.6-15.6); WHITE BLOOD COUNT 16.7 K/mm3 (4.0-10.0)
[2021-09-13 10:01] LABS: CALCIUM 7.7 mg/dL (8.5-10.1); MAGNESIUM 2.3 mg/dL (1.8-2.4)
[2021-09-13 10:02] LABS: ALBUMIN 1.1 g/dl (3.4-5.0); BLOOD UREA NITROGEN 46.1 mg/dL (7-18)
[2021-09-13 10:04] LABS: CREATININE 0.7 mg/dL (0.55-1.3)
[2021-09-13] MEDS: SODIUM ZIRCONIUM CYCLOSILICATE (LOKELMA) 5 GM PACKET PO SCH (10:04)
[2021-09-13] MEDS: PANTOPRAZOLE 40 MG TABLET PO SCH (10:04)
[2021-09-13] MEDS: MULTIVITAMINS (DAILY MVI) TABLET (FP) PO SCH (10:04)
[2021-09-13] MEDS: ZINC OXIDE 20% TOPICAL OINTMENT 30 GM TUBE TP SCH ×2 (10:05→22:21)
[2021-09-13] MEDS: LYTES/YERBA SANTA 240 ML BOTTLE MM SCH (10:05)
[2021-09-13 10:06] LABS: BILIRUBIN,TOTAL 0.2 mg/dL (0.2-1); TOT PROT 3.4 g/dl (6.4-8.2)
[2021-09-13] MEDS: LACTOBACILLUS ACIDOPHILUS 1 TABLET PO SCH (21:33)
[2021-09-13] MEDS: ZOLPIDEM TARTRATE 5 MG TABLET PO PRN (21:49)
[2021-09-14] MEDS: GABAPENTIN 100 MG CAPSULE PO SCH ×3 (05:21→21:13)
[2021-09-14] MEDS: AMINO ACIDS/PROTEIN HYDROLYS 30 ML LIQUID.PKT PO SCH (09:55)
[2021-09-14] MEDS: SODIUM ZIRCONIUM CYCLOSILICATE (LOKELMA) 5 GM PACKET PO SCH (09:55)
[2021-09-14] MEDS: LYTES/YERBA SANTA 240 ML BOTTLE MM SCH (09:55)
[2021-09-14] MEDS: PANTOPRAZOLE 40 MG TABLET PO SCH (10:09)
[2021-09-14] MEDS: ZINC OXIDE 20% TOPICAL OINTMENT 30 GM TUBE TP SCH ×2 (10:09→22:26)
[2021-09-14] MEDS: MULTIVITAMINS (DAILY MVI) TABLET (FP) PO SCH (10:09)
[2021-09-14 10:35] LABS: HEMATOCRIT 23.8 % (32.4-45.2); HEMOGLOBIN 7.8 GM/dL (10.7-15.3); MCH 30.8 pg (25.7-33.7); MCHC 32.9 g/dl (32.0-36.0); MEAN CELL VOLUME 93.6 fl (80-96); MEAN PLT VOLUME 7.4 fl (7.5-11.1); PLATELET COUNT 634 10^3/uL (134-434); RBC 2.54 M/mm3 (3.60-5.2); WHITE BLOOD COUNT 15.4 K/mm3 (4.0-10.0)
[2021-09-14 10:52] LABS: CALCIUM 7.9 mg/dL (8.5-10.1)
[2021-09-14 10:53] LABS: BLOOD UREA NITROGEN 46.4 mg/dL (7-18); MAGNESIUM 2.4 mg/dL (1.8-2.4)
[2021-09-14 10:56] LABS: CREATININE 0.8 mg/dL (0.55-1.3)
[2021-09-14 12:12] LABS: INR 0.93 (0.83-1.09); PROTHROMBIN TIME (PATIENT) 10.7 SEC (9.7-13.0)
[2021-09-14] MEDS: LACTOBACILLUS ACIDOPHILUS 1 TABLET PO SCH (21:13)
[2021-09-14] MEDS: ZOLPIDEM TARTRATE 5 MG TABLET PO PRN (22:10)
[2021-09-15] MEDS: GABAPENTIN 100 MG CAPSULE PO SCH ×3 (05:25→21:56)
[2021-09-15] MEDS: AMINO ACIDS/PROTEIN HYDROLYS 30 ML LIQUID.PKT PO SCH (08:04)
[2021-09-15 08:23] LABS: HEMATOCRIT 23.4 % (32.4-45.2); HEMOGLOBIN 7.7 GM/dL (10.7-15.3); MCH 30.3 pg (25.7-33.7); MCHC 32.8 g/dl (32.0-36.0); MEAN CELL VOLUME 92.6 fl (80-96); MEAN PLT VOLUME 7.4 fl (7.5-11.1); PLATELET COUNT 686 10^3/uL (134-434); RBC 2.53 M/mm3 (3.60-5.2); RDW 21.2 % (11.6-15.6); WHITE BLOOD COUNT 14.8 K/mm3 (4.0-10.0)
[2021-09-15 08:49] LABS: BLOOD UREA NITROGEN 49.5 mg/dL (7-18); MAGNESIUM 2.5 mg/dL (1.8-2.4)
[2021-09-15 08:50] LABS: CALCIUM 8.1 mg/dL (8.5-10.1)
[2021-09-15 08:53] LABS: CREATININE 0.9 mg/dL (0.55-1.3)
[2021-09-15] MEDS: MULTIVITAMINS (DAILY MVI) TABLET (FP) PO SCH (09:21)
[2021-09-15] MEDS: PANTOPRAZOLE 40 MG TABLET PO SCH (09:21)
[2021-09-15] MEDS: LYTES/YERBA SANTA 240 ML BOTTLE MM SCH (09:26)
[2021-09-15] MEDS ORDERED: DEXTROSE 50%-WATER - 25 GM/50 ML VIAL IVPUSH ONE (09:45)
[2021-09-15] MEDS ORDERED: CALCIUM GLUCONATE 10% - 1,000 MG/10 ML VIAL IVPUSH ONE (10:00)
[2021-09-15] MEDS ORDERED: INSULIN REGULAR HUMAN 100 UNITS/ML *VIAL IVPUSH ONE (10:00)
[2021-09-15] MEDS ORDERED: SODIUM CHLORIDE 500 ML IV STA (10:09)
[2021-09-15] MEDS: ZINC OXIDE 20% TOPICAL OINTMENT 30 GM TUBE TP SCH ×2 (10:27→21:57)
[2021-09-15] MEDS: DEXTROSE 50%-WATER - 25 GM/50 ML VIAL IVPUSH ONE ×2 (11:00→12:15)
[2021-09-15] MEDS ORDERED: DEXTROSE 50%-WATER 25 GM/50 ML DISP.SYRIN IVPUSH ONE (11:15)
[2021-09-15] MEDS: SODIUM ZIRCONIUM CYCLOSILICATE (LOKELMA) 5 GM PACKET PO SCH (13:37)
[2021-09-15 18:17] LABS: CALCIUM 7.7 mg/dL (8.5-10.1)
[2021-09-15 18:18] LABS: BLOOD UREA NITROGEN 53.4 mg/dL (7-18)
[2021-09-15] MEDS: LACTOBACILLUS ACIDOPHILUS 1 TABLET PO SCH (21:56)
[2021-09-15] MEDS: ZOLPIDEM TARTRATE 5 MG TABLET PO PRN (21:56)
[2021-09-15] MEDS ORDERED: SODIUM ZIRCONIUM CYCLOSILICATE (LOKELMA) 5 GM PACKET PO ONE (22:00)
[2021-09-16 07:49] LABS: BASO % 0.5 % (0-2.0); EOS % 1.6 % (0-4.5); HEMATOCRIT 22.8 % (32.4-45.2); HEMOGLOBIN 7.6 GM/dL (10.7-15.3); LYMPH % 5.2 % (8-40); MCH 30.9 pg (25.7-33.7); MCHC 33.2 g/dl (32.0-36.0); MEAN PLT VOLUME 7.5 fl (7.5-11.1); MONO % 5.6 % (3.8-10.2); NEUT % 87.1 % (42.8-82.8); PLATELET COUNT 608 10^3/uL (134-434); RBC 2.45 M/mm3 (3.60-5.2); RDW 21.4 % (11.6-15.6); WHITE BLOOD COUNT 13.6 K/mm3 (4.0-10.0)
[2021-09-16 08:03] LABS: BLOOD UREA NITROGEN 56.4 mg/dL (7-18); CALCIUM 7.7 mg/dL (8.5-10.1)
[2021-09-16 08:07] LABS: CREATININE 0.9 mg/dL (0.55-1.3)
[2021-09-16] MEDS: MULTIVITAMINS (DAILY MVI) TABLET (FP) PO SCH (11:35)
[2021-09-16] MEDS: PANTOPRAZOLE 40 MG TABLET PO SCH (11:35)
[2021-09-16] MEDS: GABAPENTIN 100 MG CAPSULE PO SCH ×3 (11:35→21:26)
[2021-09-16] MEDS: AMINO ACIDS/PROTEIN HYDROLYS 30 ML LIQUID.PKT PO SCH (11:36)
[2021-09-16] MEDS: ZINC OXIDE 20% TOPICAL OINTMENT 30 GM TUBE TP SCH ×2 (11:36→21:27)
[2021-09-16] MEDS: LYTES/YERBA SANTA 240 ML BOTTLE MM SCH (11:36)
[2021-09-16] MEDS: SODIUM ZIRCONIUM CYCLOSILICATE (LOKELMA) 5 GM PACKET PO SCH (11:36)
[2021-09-16 12:45] LABS: ANISOCYTOSIS 1+; MACROCYTOSIS 0
[2021-09-16] MEDS: LACTOBACILLUS ACIDOPHILUS 1 TABLET PO SCH (21:26)
[2021-09-16] MEDS ORDERED: SODIUM ZIRCONIUM CYCLOSILICATE (LOKELMA) 5 GM PACKET PO ONE (22:00)
[2021-09-16] MEDS: ZOLPIDEM TARTRATE 5 MG TABLET PO PRN (22:01)
[2021-09-17] MEDS: GABAPENTIN 100 MG CAPSULE PO SCH ×3 (05:55→21:36)
[2021-09-17 07:09] LABS: HEMATOCRIT 22.3 % (32.4-45.2); HEMOGLOBIN 7.4 GM/dL (10.7-15.3); MCH 30.8 pg (25.7-33.7); MCHC 33.3 g/dl (32.0-36.0); MEAN CELL VOLUME 92.5 fl (80-96); MEAN PLT VOLUME 7.4 fl (7.5-11.1); PLATELET COUNT 564 10^3/uL (134-434); RBC 2.41 M/mm3 (3.60-5.2); RDW 20.5 % (11.6-15.6); WHITE BLOOD COUNT 12.6 K/mm3 (4.0-10.0)
[2021-09-17 07:33] LABS: CALCIUM 7.7 mg/dL (8.5-10.1)
[2021-09-17 07:34] LABS: BLOOD UREA NITROGEN 62.4 mg/dL (7-18)
[2021-09-17 07:37] LABS: CREATININE 0.9 mg/dL (0.55-1.3)
[2021-09-17] MEDS: AMINO ACIDS/PROTEIN HYDROLYS 30 ML LIQUID.PKT PO SCH (08:32)
[2021-09-17] MEDS: MULTIVITAMINS (DAILY MVI) TABLET (FP) PO SCH (10:29)
[2021-09-17] MEDS: SODIUM ZIRCONIUM CYCLOSILICATE (LOKELMA) 5 GM PACKET PO SCH (10:29)
[2021-09-17] MEDS: ENOXAPARIN NA (PORCINE) 40 MG/0.4 ML DISP.SYRIN SQ SCH (10:29)
[2021-09-17] MEDS: PANTOPRAZOLE 40 MG TABLET PO SCH (10:29)
[2021-09-17] MEDS: LYTES/YERBA SANTA 240 ML BOTTLE MM SCH (10:30)
[2021-09-17] MEDS: ZINC OXIDE 20% TOPICAL OINTMENT 30 GM TUBE TP SCH ×2 (10:30→21:36)
[2021-09-17] MEDS: LACTOBACILLUS ACIDOPHILUS 1 TABLET PO SCH (21:36)
[2021-09-17] MEDS: ZOLPIDEM TARTRATE 5 MG TABLET PO PRN (23:50)
[2021-09-18] MEDS: GABAPENTIN 100 MG CAPSULE PO SCH ×3 (05:49→21:19)
[2021-09-18] MEDS: AMINO ACIDS/PROTEIN HYDROLYS 30 ML LIQUID.PKT PO SCH (08:00)
[2021-09-18 08:17] LABS: HEMATOCRIT 24.1 % (32.4-45.2); HEMOGLOBIN 7.9 GM/dL (10.7-15.3); MCH 30.5 pg (25.7-33.7); MCHC 32.9 g/dl (32.0-36.0); MEAN CELL VOLUME 92.6 fl (80-96); MEAN PLT VOLUME 7.6 fl (7.5-11.1); PLATELET COUNT 600 10^3/uL (134-434); RDW 19.7 % (11.6-15.6); WHITE BLOOD COUNT 11.9 K/mm3 (4.0-10.0)
[2021-09-18 08:39] LABS: BLOOD UREA NITROGEN 68.7 mg/dL (7-18); CALCIUM 7.6 mg/dL (8.5-10.1); MAGNESIUM 2.4 mg/dL (1.8-2.4)
[2021-09-18 08:45] LABS: PHOSPHOROUS 3.9 mg/dL (2.5-4.9)
[2021-09-18] MEDS: SODIUM ZIRCONIUM CYCLOSILICATE (LOKELMA) 5 GM PACKET PO SCH (11:17)
[2021-09-18] MEDS: ZINC OXIDE 20% TOPICAL OINTMENT 30 GM TUBE TP SCH ×2 (13:14→21:19)
[2021-09-18] MEDS: MULTIVITAMINS (DAILY MVI) TABLET (FP) PO SCH (13:14)
[2021-09-18] MEDS: ENOXAPARIN NA (PORCINE) 40 MG/0.4 ML DISP.SYRIN SQ SCH (13:14)
[2021-09-18] MEDS: LYTES/YERBA SANTA 240 ML BOTTLE MM SCH (13:15)
[2021-09-18] MEDS: PANTOPRAZOLE 40 MG TABLET PO SCH (13:18)
[2021-09-18] MEDS: LACTOBACILLUS ACIDOPHILUS 1 TABLET PO SCH (21:19)
[2021-09-18] MEDS: ZOLPIDEM TARTRATE 5 MG TABLET PO PRN (21:19)
[2021-09-19] MEDS: GABAPENTIN 100 MG CAPSULE PO SCH ×3 (05:09→21:59)
[2021-09-19] MEDS: ENOXAPARIN NA (PORCINE) 40 MG/0.4 ML DISP.SYRIN SQ SCH (09:59)
[2021-09-19] MEDS: SODIUM ZIRCONIUM CYCLOSILICATE (LOKELMA) 5 GM PACKET PO SCH (09:59)
[2021-09-19] MEDS: MULTIVITAMINS (DAILY MVI) TABLET (FP) PO SCH (09:59)
[2021-09-19] MEDS: AMINO ACIDS/PROTEIN HYDROLYS 30 ML LIQUID.PKT PO SCH (09:59)
[2021-09-19] MEDS: PANTOPRAZOLE 40 MG TABLET PO SCH (09:59)
[2021-09-19] MEDS: ZINC OXIDE 20% TOPICAL OINTMENT 30 GM TUBE TP SCH ×2 (10:00→22:05)
[2021-09-19] MEDS: LYTES/YERBA SANTA 240 ML BOTTLE MM SCH (10:05)
[2021-09-19 10:34] LABS: HEMATOCRIT 22.6 % (32.4-45.2); HEMOGLOBIN 7.5 GM/dL (10.7-15.3); MCH 30.5 pg (25.7-33.7); MCHC 33.2 g/dl (32.0-36.0); MEAN CELL VOLUME 92.1 fl (80-96); MEAN PLT VOLUME 7.4 fl (7.5-11.1); PLATELET COUNT 574 10^3/uL (134-434); RBC 2.46 M/mm3 (3.60-5.2); RDW 19.5 % (11.6-15.6)
[2021-09-19 10:51] LABS: CALCIUM 7.8 mg/dL (8.5-10.1)
[2021-09-19 10:52] LABS: BLOOD UREA NITROGEN 62.8 mg/dL (7-18)
[2021-09-19] MEDS: LACTOBACILLUS ACIDOPHILUS 1 TABLET PO SCH (21:59)
[2021-09-19] MEDS: ZOLPIDEM TARTRATE 5 MG TABLET PO PRN (22:02)
[2021-09-20] MEDS: GABAPENTIN 100 MG CAPSULE PO SCH ×3 (06:07→22:23)
[2021-09-20] MEDS: ZINC OXIDE 20% TOPICAL OINTMENT 30 GM TUBE TP SCH ×2 (10:09→22:23)
[2021-09-20] MEDS: AMINO ACIDS/PROTEIN HYDROLYS 30 ML LIQUID.PKT PO SCH (10:09)
[2021-09-20] MEDS: PANTOPRAZOLE 40 MG TABLET PO SCH (10:09)
[2021-09-20] MEDS: LYTES/YERBA SANTA 240 ML BOTTLE MM SCH (10:09)
[2021-09-20] MEDS: MULTIVITAMINS (DAILY MVI) TABLET (FP) PO SCH (10:09)
[2021-09-20] MEDS: ENOXAPARIN NA (PORCINE) 40 MG/0.4 ML DISP.SYRIN SQ SCH (10:10)
[2021-09-20] MEDS: SODIUM ZIRCONIUM CYCLOSILICATE (LOKELMA) 5 GM PACKET PO SCH (10:10)
[2021-09-20 10:56] LABS: HEMATOCRIT 21.8 % (32.4-45.2); HEMOGLOBIN 7.5 GM/dL (10.7-15.3); MCH 31.4 pg (25.7-33.7); MCHC 34.3 g/dl (32.0-36.0); MEAN CELL VOLUME 91.6 fl (80-96); MEAN PLT VOLUME 7.3 fl (7.5-11.1); PLATELET COUNT 545 10^3/uL (134-434); RBC 2.38 M/mm3 (3.60-5.2); RDW 19.6 % (11.6-15.6); WHITE BLOOD COUNT 8.5 K/mm3 (4.0-10.0)
[2021-09-20 10:57] LABS: BLOOD UREA NITROGEN 65.4 mg/dL (7-18); CALCIUM 7.6 mg/dL (8.5-10.1)
[2021-09-20 10:58] LABS: MAGNESIUM 2.3 mg/dL (1.8-2.4)
[2021-09-20 11:00] LABS: PHOSPHOROUS 4.4 mg/dL (2.5-4.9)
[2021-09-20] MEDS: LACTOBACILLUS ACIDOPHILUS 1 TABLET PO SCH (22:23)
[2021-09-20] MEDS: ZOLPIDEM TARTRATE 5 MG TABLET PO PRN (22:26)
[2021-09-21] MEDS: GABAPENTIN 100 MG CAPSULE PO SCH ×3 (05:12→21:27)
[2021-09-21] MEDS: AMINO ACIDS/PROTEIN HYDROLYS 30 ML LIQUID.PKT PO SCH (07:47)
[2021-09-21 08:56] LABS: HEMATOCRIT 21.8 % (32.4-45.2); HEMOGLOBIN 7.2 GM/dL (10.7-15.3); MCH 30.2 pg (25.7-33.7); MCHC 33.1 g/dl (32.0-36.0); MEAN CELL VOLUME 91.2 fl (80-96); MEAN PLT VOLUME 7.5 fl (7.5-11.1); PLATELET COUNT 612 10^3/uL (134-434); RBC 2.39 M/mm3 (3.60-5.2); RDW 19.5 % (11.6-15.6)
[2021-09-21 09:09] LABS: BLOOD UREA NITROGEN 66.2 mg/dL (7-18); CALCIUM 7.8 mg/dL (8.5-10.1); MAGNESIUM 2.4 mg/dL (1.8-2.4)
[2021-09-21 09:13] LABS: CREATININE 0.9 mg/dL (0.55-1.3); PHOSPHOROUS 4.1 mg/dL (2.5-4.9)
[2021-09-21] MEDS: MULTIVITAMINS (DAILY MVI) TABLET (FP) PO SCH (09:28)
[2021-09-21] MEDS: PANTOPRAZOLE 40 MG TABLET PO SCH (09:28)
[2021-09-21] MEDS: SODIUM ZIRCONIUM CYCLOSILICATE (LOKELMA) 5 GM PACKET PO SCH (09:28)
[2021-09-21] MEDS: ENOXAPARIN NA (PORCINE) 40 MG/0.4 ML DISP.SYRIN SQ SCH (09:28)
[2021-09-21] MEDS: LYTES/YERBA SANTA 240 ML BOTTLE MM SCH (09:47)
[2021-09-21] MEDS ORDERED: ACETAMINOPHEN 1000 MG/100 ML BAG IVPB ONE (09:49)
[2021-09-21] MEDS: ZINC OXIDE 20% TOPICAL OINTMENT 30 GM TUBE TP SCH ×2 (09:50→22:39)
[2021-09-21] MEDS: LACTOBACILLUS ACIDOPHILUS 1 TABLET PO SCH (21:27)
[2021-09-21] MEDS ORDERED: ZOLPIDEM TARTRATE 5 MG TABLET PO ONE (21:37)
[2021-09-22] MEDS: GABAPENTIN 100 MG CAPSULE PO SCH ×3 (05:09→21:38)
[2021-09-22 08:59] LABS: HEMATOCRIT 21.7 % (32.4-45.2); HEMOGLOBIN 7.1 GM/dL (10.7-15.3); MCH 30.1 pg (25.7-33.7); MCHC 32.9 g/dl (32.0-36.0); MEAN CELL VOLUME 91.6 fl (80-96); MEAN PLT VOLUME 7.6 fl (7.5-11.1); PLATELET COUNT 584 10^3/uL (134-434); RBC 2.37 M/mm3 (3.60-5.2); RDW 19.6 % (11.6-15.6); WHITE BLOOD COUNT 7.7 K/mm3 (4.0-10.0)
[2021-09-22] MEDS: AMINO ACIDS/PROTEIN HYDROLYS 30 ML LIQUID.PKT PO SCH (09:00)
[2021-09-22 09:15] LABS: CALCIUM 7.5 mg/dL (8.5-10.1)
[2021-09-22 09:16] LABS: BLOOD UREA NITROGEN 70.4 mg/dL (7-18)
[2021-09-22 09:17] LABS: CREATININE 0.9 mg/dL (0.55-1.3)
[2021-09-22] MEDS: ENOXAPARIN NA (PORCINE) 40 MG/0.4 ML DISP.SYRIN SQ SCH (10:04)
[2021-09-22] MEDS: PANTOPRAZOLE 40 MG TABLET PO SCH (10:05)
[2021-09-22] MEDS: MULTIVITAMINS (DAILY MVI) TABLET (FP) PO SCH (10:05)
[2021-09-22] MEDS: SODIUM ZIRCONIUM CYCLOSILICATE (LOKELMA) 5 GM PACKET PO SCH (10:05)
[2021-09-22] MEDS: DRONABINOL 2.5 MG CAPSULE PO SCH ×2 (10:10→21:38)
[2021-09-22] MEDS: traMADol HCL 50 MG TABLET PO PRN (10:17)
[2021-09-22] MEDS: ZINC OXIDE 20% TOPICAL OINTMENT 30 GM TUBE TP SCH ×2 (13:19→21:41)
[2021-09-22] MEDS: LYTES/YERBA SANTA 240 ML BOTTLE MM SCH (13:20)
[2021-09-22] MEDS: LACTOBACILLUS ACIDOPHILUS 1 TABLET PO SCH (21:38)
[2021-09-22] MEDS: ZOLPIDEM TARTRATE 5 MG TABLET PO PRN (21:49)
[2021-09-23] MEDS: GABAPENTIN 100 MG CAPSULE PO SCH ×3 (05:54→21:03)
[2021-09-23] MEDS: SODIUM ZIRCONIUM CYCLOSILICATE (LOKELMA) 5 GM PACKET PO SCH (09:46)
[2021-09-23] MEDS: ENOXAPARIN NA (PORCINE) 40 MG/0.4 ML DISP.SYRIN SQ SCH (09:46)
[2021-09-23] MEDS: AMINO ACIDS/PROTEIN HYDROLYS 30 ML LIQUID.PKT PO SCH (09:46)
[2021-09-23] MEDS: PANTOPRAZOLE 40 MG TABLET PO SCH (09:47)
[2021-09-23] MEDS: MULTIVITAMINS (DAILY MVI) TABLET (FP) PO SCH (09:47)
[2021-09-23] MEDS: DRONABINOL 2.5 MG CAPSULE PO SCH ×2 (09:47→21:03)
[2021-09-23] MEDS: LYTES/YERBA SANTA 240 ML BOTTLE MM SCH (09:48)
[2021-09-23] MEDS: ZINC OXIDE 20% TOPICAL OINTMENT 30 GM TUBE TP SCH ×2 (09:49→21:03)
[2021-09-23 11:33] LABS: HEMATOCRIT 21.4 % (32.4-45.2); MCH 29.7 pg (25.7-33.7); MCHC 32.4 g/dl (32.0-36.0); MEAN CELL VOLUME 91.7 fl (80-96); MEAN PLT VOLUME 7.1 fl (7.5-11.1); PLATELET COUNT 661 10^3/uL (134-434); RBC 2.34 M/mm3 (3.60-5.2); WHITE BLOOD COUNT 5.9 K/mm3 (4.0-10.0)
[2021-09-23 11:37] LABS: HEMOGLOBIN 6.9 GM/dL (10.7-15.3)
[2021-09-23 11:52] LABS: CREATININE 1.4 mg/dL (0.55-1.3)
[2021-09-23] MEDS ORDERED: TUBERCULIN PPD 5 TU/0.1ML SYRINGE (IN PATIENT USE ONLY) ID ONE (15:45)
[2021-09-23] MEDS: LACTOBACILLUS ACIDOPHILUS 1 TABLET PO SCH (21:02)
[2021-09-23] MEDS: ZOLPIDEM TARTRATE 5 MG TABLET PO PRN (23:59)
[2021-09-24] MEDS: GABAPENTIN 100 MG CAPSULE PO SCH ×3 (05:39→21:48)
[2021-09-24] MEDS: ZINC OXIDE 20% TOPICAL OINTMENT 30 GM TUBE TP SCH ×2 (10:15→21:56)
[2021-09-24] MEDS: ENOXAPARIN NA (PORCINE) 40 MG/0.4 ML DISP.SYRIN SQ SCH (10:15)
[2021-09-24] MEDS: LYTES/YERBA SANTA 240 ML BOTTLE MM SCH (10:15)
[2021-09-24] MEDS: DRONABINOL 2.5 MG CAPSULE PO SCH ×2 (10:15→21:47)
[2021-09-24] MEDS: AMINO ACIDS/PROTEIN HYDROLYS 30 ML LIQUID.PKT PO SCH (10:15)
[2021-09-24] MEDS: MULTIVITAMINS (DAILY MVI) TABLET (FP) PO SCH (10:15)
[2021-09-24] MEDS: PANTOPRAZOLE 40 MG TABLET PO SCH (10:15)
[2021-09-24] MEDS: SODIUM ZIRCONIUM CYCLOSILICATE (LOKELMA) 5 GM PACKET PO SCH (18:57)
[2021-09-24] MEDS: LACTOBACILLUS ACIDOPHILUS 1 TABLET PO SCH (21:47)
[2021-09-24] MEDS: ZOLPIDEM TARTRATE 5 MG TABLET PO PRN (21:53)
[2021-09-25] MEDS: GABAPENTIN 100 MG CAPSULE PO SCH ×3 (05:23→21:56)
[2021-09-25] MEDS: SODIUM ZIRCONIUM CYCLOSILICATE (LOKELMA) 5 GM PACKET PO SCH (09:06)
[2021-09-25] MEDS: AMINO ACIDS/PROTEIN HYDROLYS 30 ML LIQUID.PKT PO SCH (09:06)
[2021-09-25] MEDS: DRONABINOL 2.5 MG CAPSULE PO SCH ×2 (09:07→21:56)
[2021-09-25] MEDS: MULTIVITAMINS (DAILY MVI) TABLET (FP) PO SCH (09:07)
[2021-09-25] MEDS: ZINC OXIDE 20% TOPICAL OINTMENT 30 GM TUBE TP SCH ×2 (09:07→21:56)
[2021-09-25] MEDS: LYTES/YERBA SANTA 240 ML BOTTLE MM SCH (09:07)
[2021-09-25] MEDS: PANTOPRAZOLE 40 MG TABLET PO SCH (09:07)
[2021-09-25] MEDS: ENOXAPARIN NA (PORCINE) 40 MG/0.4 ML DISP.SYRIN SQ SCH (09:07)
[2021-09-25] MEDS: LACTOBACILLUS ACIDOPHILUS 1 TABLET PO SCH (21:56)
[2021-09-25] MEDS: ZOLPIDEM TARTRATE 5 MG TABLET PO PRN (22:00)
[2021-09-26] MEDS: GABAPENTIN 100 MG CAPSULE PO SCH ×3 (05:56→22:50)
[2021-09-26] MEDS: ENOXAPARIN NA (PORCINE) 40 MG/0.4 ML DISP.SYRIN SQ SCH (09:07)
[2021-09-26] MEDS: DRONABINOL 2.5 MG CAPSULE PO SCH ×2 (09:07→22:50)
[2021-09-26] MEDS: AMINO ACIDS/PROTEIN HYDROLYS 30 ML LIQUID.PKT PO SCH (09:07)
[2021-09-26] MEDS: ZINC OXIDE 20% TOPICAL OINTMENT 30 GM TUBE TP SCH ×2 (09:08→22:50)
[2021-09-26] MEDS: LYTES/YERBA SANTA 240 ML BOTTLE MM SCH (09:08)
[2021-09-26] MEDS: PANTOPRAZOLE 40 MG TABLET PO SCH (09:10)
[2021-09-26] MEDS: MULTIVITAMINS (DAILY MVI) TABLET (FP) PO SCH (09:10)
[2021-09-26] MEDS: SODIUM ZIRCONIUM CYCLOSILICATE (LOKELMA) 5 GM PACKET PO SCH (09:10)
[2021-09-26 11:01] LABS: BLOOD UREA NITROGEN 81.6 mg/dL (7-18); CALCIUM 7.6 mg/dL (8.5-10.1)
[2021-09-26 11:18] LABS: HEMATOCRIT 26.3 % (32.4-45.2); HEMOGLOBIN 8.7 GM/dL (10.7-15.3); MCH 30.1 pg (25.7-33.7); MEAN CELL VOLUME 91.1 fl (80-96); PLATELET COUNT 556 10^3/uL (134-434); RBC 2.89 M/mm3 (3.60-5.2); RDW 17.4 % (11.6-15.6); WHITE BLOOD COUNT 9.1 K/mm3 (4.0-10.0)
[2021-09-26] MEDS: LACTOBACILLUS ACIDOPHILUS 1 TABLET PO SCH (22:50)
[2021-09-26] MEDS: ZOLPIDEM TARTRATE 5 MG TABLET PO PRN (23:04)
[2021-09-27] MEDS: traMADol HCL 50 MG TABLET PO PRN (03:52)
[2021-09-27] MEDS: GABAPENTIN 100 MG CAPSULE PO SCH ×4 (05:29→21:21)
[2021-09-27] MEDS ORDERED: oxyCODONE HCL 5 MG TABLET PO PRN (08:05)
[2021-09-27] MEDS ORDERED: ACETAMINOPHEN 500 MG TABLET (FP) PO PRN (08:06)
[2021-09-27] MEDS ORDERED: traMADol HCL 50 MG TABLET PO PRN (08:06)
[2021-09-27] MEDS: AMINO ACIDS/PROTEIN HYDROLYS 30 ML LIQUID.PKT PO SCH (08:54)
[2021-09-27] MEDS: DRONABINOL 2.5 MG CAPSULE PO SCH ×2 (08:59→21:21)
[2021-09-27] MEDS: MULTIVITAMINS (DAILY MVI) TABLET (FP) PO SCH (08:59)
[2021-09-27] MEDS: PANTOPRAZOLE 40 MG TABLET PO SCH (08:59)
[2021-09-27] MEDS: LYTES/YERBA SANTA 240 ML BOTTLE MM SCH (08:59)
[2021-09-27] MEDS: ENOXAPARIN NA (PORCINE) 40 MG/0.4 ML DISP.SYRIN SQ SCH (08:59)
[2021-09-27] MEDS: ZINC OXIDE 20% TOPICAL OINTMENT 30 GM TUBE TP SCH ×2 (09:00→21:22)
[2021-09-27] MEDS ORDERED: ZINC OXIDE/PANTHENOL/VITAMIN E 56 GM TUBE TP PRN (10:00)
[2021-09-27] MEDS: SODIUM ZIRCONIUM CYCLOSILICATE (LOKELMA) 5 GM PACKET PO SCH (12:50)
[2021-09-27] MEDS ORDERED: POLYETHYLENE GLYCOL (HEALTHYLAX) 3350 17 GM PACKET PO ONE (15:37)
[2021-09-27] MEDS: TAMSULOSIN HCL 0.4 MG CAP PO SCH (16:48)
[2021-09-27] MEDS ORDERED: SODIUM CHLORIDE 1,000 ML IV SCH (19:00)
[2021-09-27] MEDS: LACTOBACILLUS ACIDOPHILUS 1 TABLET PO SCH (21:21)
[2021-09-28] MEDS: GABAPENTIN 100 MG CAPSULE PO SCH ×3 (06:12→21:12)
[2021-09-28 08:18] LABS: HEMATOCRIT 24.2 % (32.4-45.2); HEMOGLOBIN 8.1 GM/dL (10.7-15.3); MCH 30.7 pg (25.7-33.7); MCHC 33.5 g/dl (32.0-36.0); MEAN CELL VOLUME 91.8 fl (80-96); MEAN PLT VOLUME 7.3 fl (7.5-11.1); PLATELET COUNT 519 10^3/uL (134-434); RBC 2.64 M/mm3 (3.60-5.2); RDW 17.9 % (11.6-15.6); WHITE BLOOD COUNT 8.2 K/mm3 (4.0-10.0)
[2021-09-28 08:22] LABS: CALCIUM 7.6 mg/dL (8.5-10.1)
[2021-09-28 08:23] LABS: BLOOD UREA NITROGEN 86.2 mg/dL (7-18); MAGNESIUM 2.3 mg/dL (1.8-2.4)
[2021-09-28 08:26] LABS: CREATININE 1.1 mg/dL (0.55-1.3)
[2021-09-28] MEDS: ENOXAPARIN NA (PORCINE) 40 MG/0.4 ML DISP.SYRIN SQ SCH (09:21)
[2021-09-28] MEDS: SODIUM ZIRCONIUM CYCLOSILICATE (LOKELMA) 5 GM PACKET PO SCH (09:21)
[2021-09-28] MEDS: TAMSULOSIN HCL 0.4 MG CAP PO SCH (09:21)
[2021-09-28] MEDS: MULTIVITAMINS (DAILY MVI) TABLET (FP) PO SCH (09:22)
[2021-09-28] MEDS: LYTES/YERBA SANTA 240 ML BOTTLE MM SCH (09:22)
[2021-09-28] MEDS: ZINC OXIDE 20% TOPICAL OINTMENT 30 GM TUBE TP SCH ×2 (09:22→21:12)
[2021-09-28] MEDS: PANTOPRAZOLE 40 MG TABLET PO SCH (09:22)
[2021-09-28] MEDS: AMINO ACIDS/PROTEIN HYDROLYS 30 ML LIQUID.PKT PO SCH (09:22)
[2021-09-28] MEDS: DRONABINOL 2.5 MG CAPSULE PO SCH ×2 (09:22→21:11)
[2021-09-28] MEDS: LACTOBACILLUS ACIDOPHILUS 1 TABLET PO SCH (21:11)
[2021-09-28] MEDS: ZOLPIDEM TARTRATE 5 MG TABLET PO PRN (21:28)
[2021-09-29] MEDS: GABAPENTIN 100 MG CAPSULE PO SCH ×3 (06:00→21:18)
[2021-09-29] MEDS: DRONABINOL 2.5 MG CAPSULE PO SCH ×2 (09:33→21:18)
[2021-09-29] MEDS: TAMSULOSIN HCL 0.4 MG CAP PO SCH (09:33)
[2021-09-29] MEDS: ENOXAPARIN NA (PORCINE) 40 MG/0.4 ML DISP.SYRIN SQ SCH (09:34)
[2021-09-29] MEDS: AMINO ACIDS/PROTEIN HYDROLYS 30 ML LIQUID.PKT PO SCH (09:34)
[2021-09-29] MEDS: SODIUM ZIRCONIUM CYCLOSILICATE (LOKELMA) 5 GM PACKET PO SCH (09:34)
[2021-09-29] MEDS: MULTIVITAMINS (DAILY MVI) TABLET (FP) PO SCH (09:34)
[2021-09-29] MEDS: PANTOPRAZOLE 40 MG TABLET PO SCH (09:34)
[2021-09-29] MEDS: ZINC OXIDE 20% TOPICAL OINTMENT 30 GM TUBE TP SCH ×2 (09:36→21:18)
[2021-09-29] MEDS: LYTES/YERBA SANTA 240 ML BOTTLE MM SCH (09:36)
[2021-09-29] MEDS: MIRTAZAPINE 15 MG TABLET (FP) PO SCH (21:18)
[2021-09-29] MEDS: LACTOBACILLUS ACIDOPHILUS 1 TABLET PO SCH (21:18)
[2021-09-30] MEDS ORDERED: LACTATED RINGERS SOLUTION 1000 ML INFUS.BAG IV ONE (04:40)
[2021-09-30] MEDS: GABAPENTIN 100 MG CAPSULE PO SCH ×3 (06:36→22:09)
[2021-09-30] MEDS: AMINO ACIDS/PROTEIN HYDROLYS 30 ML LIQUID.PKT PO SCH (09:20)
[2021-09-30] MEDS: DRONABINOL 2.5 MG CAPSULE PO SCH ×2 (09:20→22:09)
[2021-09-30] MEDS: MULTIVITAMINS (DAILY MVI) TABLET (FP) PO SCH (09:21)
[2021-09-30] MEDS: PANTOPRAZOLE 40 MG TABLET PO SCH (09:21)
[2021-09-30] MEDS: TAMSULOSIN HCL 0.4 MG CAP PO SCH (09:21)
[2021-09-30] MEDS: SODIUM ZIRCONIUM CYCLOSILICATE (LOKELMA) 5 GM PACKET PO SCH (09:21)
[2021-09-30] MEDS: ZINC OXIDE 20% TOPICAL OINTMENT 30 GM TUBE TP SCH ×2 (09:33→22:12)
[2021-09-30] MEDS: LYTES/YERBA SANTA 240 ML BOTTLE MM SCH (09:34)
[2021-09-30] MEDS ORDERED: FENTANYL PATCH WASTE TD PRN (11:32)
[2021-09-30] MEDS: fentaNYL 12mcg/hr PATCH.TD72 TD SCH (12:30)
[2021-09-30] MEDS: AMINO ACIDS 4.25%/D5W 1,000 ML IV SCH (15:21)
[2021-09-30] MEDS ORDERED: FAT EMULSIONS 20% 250 ML PREMIX INFUS.BAG IV SCH (22:00)
[2021-09-30] MEDS: LACTOBACILLUS ACIDOPHILUS 1 TABLET PO SCH (22:09)
[2021-09-30] MEDS: MIRTAZAPINE 15 MG TABLET (FP) PO SCH (22:09)
[2021-09-30] MEDS: FAT EMULSION/OLIVE/SOY/PHOSPHO 250 ML IV SCH (22:32)
[2021-10-01] MEDS: GABAPENTIN 100 MG CAPSULE PO SCH ×3 (06:20→21:50)
[2021-10-01 08:49] LABS: HEMATOCRIT 25.2 % (32.4-45.2); HEMOGLOBIN 8.5 GM/dL (10.7-15.3); MCH 30.6 pg (25.7-33.7); MCHC 33.7 g/dl (32.0-36.0); MEAN CELL VOLUME 90.6 fl (80-96); MEAN PLT VOLUME 7.6 fl (7.5-11.1); PLATELET COUNT 556 10^3/uL (134-434); RBC 2.78 M/mm3 (3.60-5.2); RDW 17.2 % (11.6-15.6); WHITE BLOOD COUNT 7.7 K/mm3 (4.0-10.0)
[2021-10-01 09:19] LABS: BLOOD UREA NITROGEN 93.4 mg/dL (7-18); CALCIUM 7.8 mg/dL (8.5-10.1)
[2021-10-01] MEDS: DRONABINOL 2.5 MG CAPSULE PO SCH ×2 (12:15→21:50)
[2021-10-01] MEDS: PANTOPRAZOLE 40 MG TABLET PO SCH (12:15)
[2021-10-01] MEDS: LYTES/YERBA SANTA 240 ML BOTTLE MM SCH (12:15)
[2021-10-01] MEDS: TAMSULOSIN HCL 0.4 MG CAP PO SCH (12:15)
[2021-10-01] MEDS: SODIUM ZIRCONIUM CYCLOSILICATE (LOKELMA) 5 GM PACKET PO SCH (12:15)
[2021-10-01] MEDS: AMINO ACIDS/PROTEIN HYDROLYS 30 ML LIQUID.PKT PO SCH (12:15)
[2021-10-01] MEDS: ZINC OXIDE 20% TOPICAL OINTMENT 30 GM TUBE TP SCH ×2 (12:16→21:50)
[2021-10-01] MEDS: MULTIVITAMINS (DAILY MVI) TABLET (FP) PO SCH (12:16)
[2021-10-01] MEDS: AMINO ACIDS 4.25%/D5W 1,000 ML IV SCH (14:28)
[2021-10-01] MEDS: LACTOBACILLUS ACIDOPHILUS 1 TABLET PO SCH (21:50)
[2021-10-01] MEDS: MIRTAZAPINE 15 MG TABLET (FP) PO SCH (21:50)
[2021-10-01] MEDS: FAT EMULSION/OLIVE/SOY/PHOSPHO 250 ML IV SCH (21:53)
[2021-10-02] MEDS: GABAPENTIN 100 MG CAPSULE PO SCH ×3 (06:16→23:11)
[2021-10-02 09:18] LABS: BLOOD UREA NITROGEN 98.5 mg/dL (7-18); CALCIUM 7.3 mg/dL (8.5-10.1)
[2021-10-02] MEDS: LYTES/YERBA SANTA 240 ML BOTTLE MM SCH (09:53)
[2021-10-02] MEDS: AMINO ACIDS/PROTEIN HYDROLYS 30 ML LIQUID.PKT PO SCH (09:54)
[2021-10-02] MEDS: ZINC OXIDE 20% TOPICAL OINTMENT 30 GM TUBE TP SCH ×2 (09:54→23:12)
[2021-10-02] MEDS: SODIUM ZIRCONIUM CYCLOSILICATE (LOKELMA) 5 GM PACKET PO SCH (09:54)
[2021-10-02] MEDS: TAMSULOSIN HCL 0.4 MG CAP PO SCH (09:55)
[2021-10-02] MEDS: MULTIVITAMINS (DAILY MVI) TABLET (FP) PO SCH (09:55)
[2021-10-02] MEDS: DRONABINOL 2.5 MG CAPSULE PO SCH ×2 (09:55→23:11)
[2021-10-02] MEDS: PANTOPRAZOLE 40 MG TABLET PO SCH (09:55)
[2021-10-02] MEDS ORDERED: oxyCODONE HCL 5 MG TABLET PO PRN (13:57)
[2021-10-02] MEDS: AMINO ACIDS 4.25%/D5W 1,000 ML IV SCH (16:24)
[2021-10-02] MEDS: FAT EMULSION/OLIVE/SOY/PHOSPHO 250 ML IV SCH (23:10)
[2021-10-02] MEDS: MIRTAZAPINE 15 MG TABLET (FP) PO SCH (23:11)
[2021-10-02] MEDS: LACTOBACILLUS ACIDOPHILUS 1 TABLET PO SCH (23:11)
[2021-10-03] MEDS: GABAPENTIN 100 MG CAPSULE PO SCH ×3 (06:08→22:44)
[2021-10-03] MEDS: TAMSULOSIN HCL 0.4 MG CAP PO SCH (10:42)
[2021-10-03] MEDS: DRONABINOL 2.5 MG CAPSULE PO SCH ×2 (10:42→22:44)
[2021-10-03] MEDS: PANTOPRAZOLE 40 MG TABLET PO SCH (10:42)
[2021-10-03] MEDS: MULTIVITAMINS (DAILY MVI) TABLET (FP) PO SCH (10:42)
[2021-10-03] MEDS: AMINO ACIDS/PROTEIN HYDROLYS 30 ML LIQUID.PKT PO SCH (10:43)
[2021-10-03] MEDS: ZINC OXIDE 20% TOPICAL OINTMENT 30 GM TUBE TP SCH ×2 (10:44→22:45)
[2021-10-03] MEDS: LYTES/YERBA SANTA 240 ML BOTTLE MM SCH (10:44)
[2021-10-03] MEDS: fentaNYL 12mcg/hr PATCH.TD72 TD SCH (11:05)
[2021-10-03] MEDS: AMINO ACIDS 4.25%/D5W 1,000 ML IV SCH (14:42)
[2021-10-03] MEDS: LACTOBACILLUS ACIDOPHILUS 1 TABLET PO SCH (22:44)
[2021-10-03] MEDS: MIRTAZAPINE 15 MG TABLET (FP) PO SCH (22:44)
[2021-10-03] MEDS: FAT EMULSION/OLIVE/SOY/PHOSPHO 250 ML IV SCH (22:44)
[2021-10-04] MEDS: GABAPENTIN 100 MG CAPSULE PO SCH ×3 (06:12→22:09)
[2021-10-04] MEDS: AMINO ACIDS/PROTEIN HYDROLYS 30 ML LIQUID.PKT PO SCH (09:50)
[2021-10-04] MEDS: TAMSULOSIN HCL 0.4 MG CAP PO SCH (09:50)
[2021-10-04] MEDS: SODIUM ZIRCONIUM CYCLOSILICATE (LOKELMA) 5 GM PACKET PO SCH (09:51)
[2021-10-04] MEDS: LYTES/YERBA SANTA 240 ML BOTTLE MM SCH (09:51)
[2021-10-04] MEDS: MULTIVITAMINS (DAILY MVI) TABLET (FP) PO SCH (09:51)
[2021-10-04] MEDS: DRONABINOL 2.5 MG CAPSULE PO SCH (09:51)
[2021-10-04] MEDS: ZINC OXIDE 20% TOPICAL OINTMENT 30 GM TUBE TP SCH ×2 (09:51→22:08)
[2021-10-04] MEDS: PANTOPRAZOLE 40 MG TABLET PO SCH (09:51)
[2021-10-04] MEDS: AMINO ACIDS 4.25%/D5W 1,000 ML IV SCH (15:14)
[2021-10-04] MEDS: MIRTAZAPINE 15 MG TABLET (FP) PO SCH (22:09)
[2021-10-04] MEDS: LACTOBACILLUS ACIDOPHILUS 1 TABLET PO SCH (22:09)
[2021-10-04] MEDS: FAT EMULSION/OLIVE/SOY/PHOSPHO 250 ML IV SCH (22:11)
[2021-10-05] MEDS: GABAPENTIN 100 MG CAPSULE PO SCH (05:23)
[2021-10-05 09:13] VITALS: BP 84/35; PULSE 80; TEMP 98
[2021-10-05] MEDS: PANTOPRAZOLE 40 MG TABLET PO SCH (10:25)
[2021-10-05] MEDS: LYTES/YERBA SANTA 240 ML BOTTLE MM SCH (10:25)
[2021-10-05] MEDS: AMINO ACIDS/PROTEIN HYDROLYS 30 ML LIQUID.PKT PO SCH (10:25)
[2021-10-05] MEDS: SODIUM ZIRCONIUM CYCLOSILICATE (LOKELMA) 5 GM PACKET PO SCH (10:25)
[2021-10-05] MEDS: TAMSULOSIN HCL 0.4 MG CAP PO SCH (10:25)
[2021-10-05] MEDS: MULTIVITAMINS (DAILY MVI) TABLET (FP) PO SCH (10:25)
[2021-10-05] MEDS: ZINC OXIDE 20% TOPICAL OINTMENT 30 GM TUBE TP SCH (11:16)
== END 2021-10-05 11:40 | disposition hospice, home (50) | DRG 374 ==
LOC: JER 17:03 → JERBED 21:48 → J5S 08-23 03:07 → J7W 09-21 18:26
PROVIDERS: ADMIT Hospitalist; ATTEND Internal Medicine
PROC: 0W9930Z Drainage of Right Pleural Cavity with Drainage Device, Percutaneous Approach (ICD-10-PCS; 2021-08-23)
PROC: 0W993ZX Drainage of Right Pleural Cavity, Percutaneous Approach, Diagnostic (ICD-10-PCS; 2021-08-24)
PROC: 30233N1 Transfusion of Nonautologous Red Blood Cells into Peripheral Vein, Percutaneous Approach (ICD-10-PCS; 2021-08-25)
PROC: 0W9G3ZZ Drainage of Peritoneal Cavity, Percutaneous Approach (ICD-10-PCS; 2021-08-31)
PROC: BW40ZZZ Ultrasonography of Abdomen (ICD-10-PCS; 2021-08-31)
PROC: 0W9B30Z Drainage of Left Pleural Cavity with Drainage Device, Percutaneous Approach (ICD-10-PCS; principal; 2021-09-16)
DX: C78.6 Secondary malignant neoplasm of retroperitoneum and peritoneum (principal); E43 Unspecified severe protein-calorie malnutrition; K65.2 Spontaneous bacterial peritonitis; J86.9 Pyothorax without fistula; C56.9 Malignant neoplasm of unspecified ovary; J94.2 Hemothorax; J98.11 Atelectasis; R64 Cachexia; R18.8 Other ascites; E87.1 Hypo-osmolality and hyponatremia; J90 Pleural effusion, not elsewhere classified; J91.0 Malignant pleural effusion; D64.9 Anemia, unspecified; R58 Hemorrhage, not elsewhere classified; M21.372 Foot drop, left foot; R62.7 Adult failure to thrive; R09.02 Hypoxemia; E87.5 Hyperkalemia; R63.0 Anorexia; R53.1 Weakness; D63.8 Anemia in other chronic diseases classified elsewhere; M48.00 Spinal stenosis, site unspecified; Z66 Do not resuscitate; C45.9 Mesothelioma, unspecified; G89.18 Other acute postprocedural pain; R00.0 Tachycardia, unspecified; M21.371 Foot drop, right foot; Z68.21 Body mass index [BMI] 21.0-21.9, adult; R33.9 Retention of urine, unspecified; L89.152 Pressure ulcer of sacral region, stage 2; D72.829 Elevated white blood cell count, unspecified
CPT/HCPCS: 32550; 36415; 36430; 36600; 49180; 70450-TC; 71045-TC-FY; 71260-TC; 72131-TC; 74177-TC; 76942-TC; 80048; 80053; 81003; 82042; 82150; 82378; 82465; 82570; 82607; 82728; 82746; 82803; 82945; 82962; 83540; 83550; 83605; 83615; 83690; 83735; 83880; 83930; 83935; 83986; 84100; 84157; 84300; 84439; 84443; 84478; 84484; 85025; 85027; 85045; 85610; 85730; 86304; 86850; 86900; 86901; 86922; 87040; 87070; 87075; 87102; 87116; 87177; 87205; 87206; 87209; 87210; 87324; 87449; 88108; 88305-TC; 88341-TC; 93005; 93010; 93970-TC; 97116-GP; 97162-GP; 99291; C9803-CS; J1644; P9047; P9058; Q9967; U0003; U0005